=== PATIENT | male | born 1985 | race Caucasian/White ===

== ENCOUNTER 2024-09-22 22:45 | Inpatient (IN) | payer MEDICARE, SELFPAY ==
[2024-09-22] VITALS (17 sets, daily range): BP systolic 107–137; BP diastolic 58–96
[2024-09-22] MEDS: ATIVAN 2 MG IV ×2 (19:39→20:25)
[2024-09-22] MEDS: ZOFRAN 4 MG IV (19:42)
[2024-09-22] MEDS: NSS 1000 IV ×2 (19:42→20:25)
[2024-09-22 19:56] LABS: Urine Albumin 2+ (Neg - Trace); Urine Bilirubin Negative (Negative); Urine Character Clear (Clear); Urine Color Yellow; Urine Glucose Negative (Negative); Urine Ketone 2+ (Negative); Urine Leukocyte 1+ (Negative); Urine Nitrite Negative (Negative); Urine Occult Blood Negative (Negative); Urine Specific Gravity 1.015 (<1.030); Urine Urobilinogen Negative (Neg - 1+)
--- NOTE | 2024-09-22 19:56 | ED.GENMED ---
History of Present Illness
General
Chief Complaint: Withdrawal Symptoms
Time Seen by Provider: 09/22/24 19:36
History of Present Illness
History of Present Illness:
39-year-old male with history of opiate abuse presenting to the emergency department for concern of withdrawal versus overdose. Patient was reportedly found unresponsive by his partner. Last use of drugs was allegedly a week ago. Emesis called
him on medics arrival, did administer Narcan without significant response. Patient awake on their arrival, however shaky and not conversational. Patient unable to give any additional history.
Past History
Past History
ED Past Medical History: None
Social History
Tobacco: Smoker
Alcohol: Occasional
Drug: IVDA
Family History
Family History: Negative Diabetes
Phy Exam
Physical Exam
Physical Exam:
General: Covered in emesis, tremulous
HEENT: protecting airway
Neck: appears supple
CV: Tachycardic, regular rhythm, no evidence of cyanosis
Resp: No accessory muscle use, no increased work of breathing, lungs clear to auscultation bilaterally
Abd: Soft and non-distended, no tenderness to palpation
Extremities: No deformities, no swelling
Neuro: alert, no verbal communication, tremulous
: deferred
Rectal: deferred
Psych: Normal affect
Skin: Intact
Scores
COW Clinical Opiate Withdrawal Scale
Resting Pulse Rate: 101-120
Sweating-over past 30min not from room temp or activity: Flushed or observable moistness on face
Restlessness-observation during assessment: Frequent shifting or extraneous movements of legs/arms
Pupil Size: Pupils possibly larger than normal for room light
Bone or Joint Aches: Not present
Runny Nose or Tearing-not accounted for by cold/allergies: Not present
GI Upset-over last 30min: Multiple episodes of diarrhea or vomiting
Tremor-observation of outstretched hands: Gross tremor or muscle twitching
Yawning-observation during assessment: No yawning
Anxiety or Irritability: None
Gooseflesh Skin: Skin is smooth
Score: 17
Withdrawal Severity: Moderate Withdrawal, consider starting Suboxone
Course
Orders/Labs/Results
Orders:
Orders
09/22/24 Breakfast
NPO
Allow oral meds: Yes
Allow clear liquids: Sips of Clears
09/22/24 19:34
Lorazepam [Ativan] 2 mg .ROUTE .STK-MED ONE
09/22/24 19:36
0.9% Sodium Chloride 1000 ml [Nss] 1,000 ml IV BOLUS
Lorazepam [Ativan] 2 mg IV NOW STA
Ondansetron Injectable [Zofran] 4 mg IV NOW STA
09/22/24 19:37
Electrocardiogram (*1) Stat
Reason for Study: Other
Other Reason for Exam: overdose
CT Head W/o Iv Contrast Urgent
Comment:
Reason For Exam: AMS, withdrawl
EKG- Treatment ONCE
CR Chest Portable - 1 View Urgent
Comment:
Reason For Exam: withdrawl
Reason Study Needs to be Portable: Patient Unstable
09/22/24 19:40
Acetaminophen Urgent
Alcohol Urgent
Complete Blood Count/With Diff Urgent
Comprehensive Metabolic Panel Urgent
Magnesium Urgent
Manual Differential Urgent
Salicylate Urgent
09/22/24 19:45
Fentanyl, Urine Urgent
Urinalysis Reflex To Culture Urgent
Date Specimen was Collected: 09/22/24
Time Specimen was Collected: 19:43
Urine Drug Abuse Screen Urgent
Date Specimen was Collected: 09/22/24
Time Specimen was Collected: 19:43
Urine Microscopic Reflex Cult Urgent
Urine Culture Urgent
YULIYA Source: U
Specimen Description:
Date Specimen was Collected: 09/22/24
Time Specimen was Collected: 19:43
09/22/24 20:21
0.9% Sodium Chloride 1000 ml [Nss] 1,000 ml IV BOLUS
Lorazepam [Ativan] 2 mg IV NOW STA
09/22/24 20:22
0.9% Sodium Chloride 1000 ml [Nss] 1,000 ml IV BOLUS
09/22/24 22:00
Flush (0.9% Sodium Chloride) [Flush (Nss)] See Dose Instructions IV PER PROTOCOL
09/22/24 22:06
Admit/Transfer Patient As Directed
Co-Sign Provider:
Level of Care: Inpatient admission
Assign to:: ICU
Physician / Group: Phuc
Diagnosis: Overdose / Withdrawal
Reason for Hospitalization: Overdose / Withdrawal
Expected length of stay greater than two midnights?: Yes
ELOS- Estimated Length of Stay in days: 4
I certify the patient meets the requirements for IP care: Yes
PRN Pain Medication Management As Directed
May give lesser potent ordered pain med per pt: Yes
preference::
Protocol:: Medication orders for pain may be administered in a
manner that supports deferring to patient preference
when the pt is:
- Requesting an ordered lesser potent pain medication.
Least to most potent pain medications are defined
as: acetaminophen < NSAID < tramadol < opioids
(morphine, oxycodone, hydromorphone).
- Requesting a lesser dose of the same medication IF
ORDERED.
- Requesting a less intrusive route of administration
if both routes are prescribed by the provider (PO <
IV).
09/22/24 22:07
Code Status As Directed
Resuscitation Status: Full Code
09/22/24 22:14
Add On- LAB Urgent
Tests Added?: Magnesium
Potassium Chloride [KCl] 40 meq 0.9% Sodium Chloride 250 ml [Nss] 250 ml IV NOW
09/22/24 22:18
ABG [Arterial Blood Gas] Urgent
%Oxygen/Room Air: High Flow
09/22/24 22:48
Acetaminophen [Tylenol] 650 mg PO Q4HPRN PRN
Albuterol Nebs [Ventolin Nebules] 2.5 mg INH R Q4HPRN PRN
Buprenorphine [Subutex] 8 mg SL PRN PRN
Haloperidol Lactate [Haldol] 5 mg IV ONCE PRN PRN
Lorazepam [Ativan] 2 mg IV Q4HPRN PRN
Tizanidine [Zanaflex] 2 mg PO Q6HPRN PRN
Trimethobenzamide [Tigan] 200 mg IM Q6HPRN PRN
VANCOMYCIN Pharmacy to Dose [VANCOCIN Pharmacy to Dose] 1 each Pharmacy To Prepare [Call Pharmacy To Prepare] 0 ml IV PER PROTOCOL
09/22/24 22:48
Electrocardiogram (*1) Routine
Reason for Study: QTc Monitoring
Comment: if not already done in ED
Case Management Consult ONCE
Case Management Consult: Other
Comment: opioid withdrawal
Consult Notification Routine
Specialty to Notify: Corn Detasseler Machine Operator
Date consulting provider notified: 09/23/24
Time consulting provider notified: 07:16
Notified:: Provider
Corn Detasseler Machine Operator Consult Routine
Consulting Provider: Akbar Da Silva
Was physician already notified: No
Reason for consult: Altered Mental Status / Overdose
Activity As Directed
Activity Level: Bedrest
Clinical Opioid Withdrawal Scale (COWS) .PRN
Frequency:: now, Q4 hours x 24 hours, then PRN based on symptoms
EEG [Rapid Point of Care EEG (ED/ICU ONLY)] Q1H
Indications for use:: Altered Mental Status
EKG with chest pain [ECG as needed] As Directed
ECG as needed for:: Chest Pain
Castañeda Catheter [Catheter- Indwelling] As Directed
Reason for insertion: Acute Kidney Injury
Discontinue Date/Time: 09/25/24 0600
Intake/ Output As Directed
Frequency: Per unit guidelines
Comment: strict intake and output monitoring
Neurological Checks As Directed
Frequency: q4h
Pneumatic Compression Sleeves As Directed
Type: Knee high
Precautions As Directed
Type of Precautions: Seizure
Aspiration
Vital Signs As Directed
Frequency: Per unit guidelines
Weight As Directed
Frequency: Daily
Oxygen Therapy [O2 Therapy] [RESP] Routine
Titrate/Wean O2 to maintain O2 sat greater than (%): 94
DX Deep Vein Thrombosis Video Routine
09/22/24 23:00
KCl 40 Meq/0.9%Sodchl 1000 ml [NSS with KCL 40 MEQ] 40 meq in 1,000 ml IV 150 mls/hr
09/22/24 23:04
Blood Culture Q30M
YULIYA Source: Blood/Venous
Specimen Description:
09/22/24 23:05
B-Hydroxybutyrate Urgent
Lactic Acid Urgent
TSH Reflex To Free T4 Routine
09/22/24 23:07
Blood Culture Q30M
YULIYA Source: Blood/Venous
Specimen Description:
09/23/24 00:00
Piperacillin/Tazo 2.25 Gram [Zosyn] 2.25 grams in 50 ml IV Q8H
09/23/24 03:42
Complete Blood Count/No Diff IN AM
09/23/24 06:00
EKG [Electrocardiogram (*1)] IN AM
Reason for Study: Chest Pain
09/23/24 08:00
Buprenorphine [Subutex] 4 mg SL ONCE PRN PRN
Buprenorphine [Subutex] See Dose Instructions SL ONCE ONE
Pantoprazole [Protonix IV] 40 mg IV DAILY
09/23/24 12:14
Basic Metabolic Panel Q6H
09/23/24 17:56
Basic Metabolic Panel Q6H
09/24/24 02:27
Basic Metabolic Panel Q6H
09/24/24 08:00
Buprenorphine [Subutex] See Dose Instructions SL DAILY
Abnormal Lab Results
09/22/24 09/22/24 09/22/24
19:40 19:45 22:18
WBC 34.5 H 10^3/uL
(4.8-10.8)
RBC 6.66 H 10^6/uL
(4.70-6.10)
Hgb 18.2 H g/dL
(13.0-18.0)
MCV 77.6 L fL
(80.0-94.0)
MPV 11.4 H fL
(7.4-10.4)
Abs Neuts (Manual) 30.3 H 10^3/uL
(1.4-6.5)
Segmented Neutrophils 88 H %
(42-75)
Lymphocytes (Manual) 9 L %
(20-51)
pH 7.60 H
(7.35-7.45)
pCO2 30 L mmHg
(35-48)
pO2 124 H mmHg
(83-108)
HCO3 29.5 H mmol/L
(21-28)
ABG O2 Sat (Measured) 99.6 H %
(94-98)
Sodium 152 H mmol/L
(135-145)
Potassium 3.1 L mmol/L
(3.5-5.1)
Chloride 96 L mmol/L
(98-107)
Carbon Dioxide 33 H mmol/L
(22-30)
BUN 36 H mg/dl
(9-20)
Creatinine 4.9 H* mg/dL
(0.7-1.3)
Glucose 130 H mg/dl
(70-99)
Calcium 11.5 H mg/dl
(8.4-10.2)
Magnesium 2.6 H mg/dl
(1.6-2.3)
Total Bilirubin 1.9 H mg/dl
(0.2-1.3)
Total Protein 9.1 H g/dl
(6.3-8.2)
Albumin 5.5 H g/dl
(3.5-5.0)
Urine Ketones 2+ A
(Negative)
Leukocyte Esterase Rfl 1+ A
(Negative)
Urine Bacteria (Reflex) Moderate A
(Negative)
Urine Albumin (Reflex) 2+ A
(Neg - Trace)
Salicylates < 1.0 L mg/dl
(2.0-20.0)
Urine Fentanyl Screen Positive H
(Negative)
Acetaminophen < 10 L ug/ml
(10-30)
Urine Cocaine Screen Positive H
(Negative)
09/22/24 19:40
09/22/24 19:40
Vital Signs
Initial and Last Documented VS:
Initial Vital Signs
Pulse Resp
106 20
09/22/24 19:29 09/22/24 19:29
Last Documented Vital Signs
Temp Pulse Resp BP Pulse Ox
99.3 F 84 20 175/101 96
09/24/24 11:00 09/24/24 11:45 09/24/24 11:45 09/24/24 11:00 09/24/24 11:45
MDM/Problems Addressed
MDM/Problems Addressed:
39-year-old male with history of opiate abuse presenting to the emergency department for concern of withdrawal versus overdose. Vital signs on arrival significant for tachycardia and hypoxia.
On exam patient is awake and alert, however appears altered, unable to provide any information. Patient is covered in emesis. No significant response to Narcan, however no pinpoint pupils or respiratory depression with lower suspicion for
overdose. Ultimately suspect severe withdrawal. Patient placed on high flow nasal cannula for oxygen support. Plan for laboratory analysis and supportive therapy with IV fluids and benzodiazepines. Will also obtain CT brain imaging given unclear
history.
20:00 - EKG shows prolonged QTc. Will hold any additional antiemetics.
20:30 - Patient's labs show significant elevation of creatinine with concern for acute kidney injury from dehydration. Continuing IV fluids. Will give additional dose of benzos. Plan for admission for withdrawal from opiates, however. Patient is
positive for both fentanyl and cocaine so possible concomitant overdose.
*Pulse Oximetry
SaO2: 100
Oxygen Mode of Delivery: Room air
*EKG
Interpreted by ED Provider?: Yes
EKG Intrepretation Date: 09/22/24
EKG Intrepretation Time: 20:00
Interpretation: normal
Heart Rate: 96
Rate: normal
Rhythm: sinus
[place]: normal axis
Interval: long QT
QRS Pattern: normal QRS
Ischemia: no ischemia
*Critical Care Note
Total Time (30-74mins, 75-104mins- exclusive of procedures): 41
comment:
The high probability of a clinically significant, sudden or life threatening deterioration of the respiratory system(s) required my full and direct attention, intervention and personal management. The aggregate critical care time was 41 minutes.
This time is in addition to time spent performing reported procedures but includes the following:
[x] Data Review and interpretation
[x] Patient assessment and monitoring of vital signs
[x] Documentation
[x] Medication orders and management
ED Attending Note
-
Portions of this chart may have been created with voice recognition software.� Occasional wrong word or��sound alike� substitutions may have occurred due to the inherent limitations of voice recognition software.
Discharge Plan
Departure
Patient Disposition: Admit
Date of Disposition: 09/22/24
Time of Disposition: 20:39
Presentation/result/management discussed w/ accepting MD/DO: Hospitalist
Patient with high blood pressure during this ER visit?: No
Condition: Critical
Discharge Problem:
Acute renal failure, Overdose by ingestion
Interventions
Interventions:
*General Assessment Last Done: 09/22/24 19:50
*Neglect/Abuse Screening Last Done: 09/22/24 19:32
*ED- Fall Risk Assessment Last Done: 09/22/24 19:32
*ED COVID-19 Vaccine History Last Done: 09/22/24 19:32
*Nursing Disposition Last Done: 09/22/24 22:51
ED- Neurological Assessment Last Done: 09/22/24 19:37
ED-Psychological Assessment Last Done: 09/22/24 19:37
Discharge Date and Time
Discharge Date/Time: 09/22/24 22:52
[2024-09-22 20:02] LABS: Urine Squamous Cell 0-2 /LPF (Few)
[2024-09-22 20:05] LABS: Urine Red Blood Cell 0-2 /HPF (0-2)
[2024-09-22 20:07] LABS: Urine Sperm Seen
[2024-09-22 20:08] LABS: Amphetamines Negative (Negative); Barbiturates Negative (Negative); Benzodiazepines Negative (Negative); Buprenorphine Negative (Negative); Cocaine Positive (Negative); Marijuana Negative (Negative); Methadone Negative (Negative); Methamphetamines Negative (Negative); Opiates Negative (Negative); Phencyclidine Negative (Negative); Tricyclic Antidepressants Negative (Negative); Urine Bacteria Moderate (Negative); Urine Trichomonas Moderate
[2024-09-22 20:11] LABS: Alcohol None Detected
[2024-09-22 20:20] LABS: ALT (SGPT) 31 U/L (0-50); AST (SGOT) 54 U/L (17-59); Acetaminophen < 10 ug/ml (10-30); Albumin 5.5 g/dl (3.5-5.0); Alkaline Phosphatase 77 U/L (38-126); Blood Urea Nitrogen 36 mg/dl (9-20); Calcium 11.5 mg/dl (8.4-10.2); Carbon Dioxide 33 mmol/L (22-30); Chloride 96 mmol/L (98-107); Glucose 130 mg/dl (70-99); Potassium 3.1 mmol/L (3.5-5.1); Salicylate < 1.0 mg/dl (2.0-20.0); Sodium 152 mmol/L (135-145); Total Bilirubin 1.9 mg/dl (0.2-1.3); Total Protein 9.1 g/dl (6.3-8.2); eGFR 14.67
[2024-09-22 20:21] LABS: Hematocrit 51.7 % (39.0-52.0); Hemoglobin 18.2 g/dL (13.0-18.0); Mean Corp Hgb Conc. 35.2 g/dL (33.0-37.0); Mean Corpuscular Hgb 27.3 pg (27.0-31.0); Mean Corpuscular Volume 77.6 fL (80.0-94.0); Mean Platelet Volume 11.4 fL (7.4-10.4); Platelet Count 354 10^3/uL (130-400); Red Blood Cell Count 6.66 10^6/uL (4.70-6.10); Red Cell Dist. Width 14.3 % (11.5-14.5); White Blood Cell Count 34.5 10^3/uL (4.8-10.8)
[2024-09-22 20:23] LABS: Absolute Neutrophils -Man Diff 30.3 10^3/uL (1.4-6.5); Band Neutrophils 0 % (0-3); Lymphocytes 9 % (20-51); Monocytes 3 % (2-9); Platelets Checked Yes; Segmented Neutrophils 88 % (42-75)
[2024-09-22 20:24] LABS: Anisocytosis Slight; Macrocytosis Slight; Normal RBC Morphology No
[2024-09-22 20:25] LABS: Fentanyl, Urine Positive (Negative)
[2024-09-22 20:26] LABS: Ovalocytes Slight; Total Cells Counted 100
--- NOTE | 2024-09-22 20:26 | PHANOTE ---
med rec note- patient minimal responding to question, only has two prescription drug bottles with him which are coverage in dark matter. andie ([phone]) pharmacy closed at this time, unable to get directions for medication, no ecw.
--- NOTE | 2024-09-22 22:19 | HPS.HSE ---
Family Physician
-
Family Physician: INTERVIEWE UNKNOWN - PT NOT
Chief Complaint
-
Altered Mental Status
History of Present Illness
Patient is a 39y M with unknown PMH who presents to ED via EMS for evaluation of unresponsiveness. History obtained from ED record. Patient is minimally responsive / unable to contribute to this history. Unable to reach partner via phone -
goes direct to voicemail.
Patient reportedly found unresponsive at home by his partner who called EMS. EMS arrived to find patient awake but tremulous and poorly responsive / not following commands.
Patient covered in emesis. Given Narcan at the scene with no improvement. Brought to the ED for further evaluation and treatment.
Patient placed on high flow O2 in the ED for initial hypoxemia (85% room air).
At the time of my examination, he will turn his had toward loud noise / tactile stimuli. Does not answer questions or follow commands.
Medical History
Past Medical History
Past Medical History: Reports Other
Additional Past Medical History:
Unknown
Past Surgical History: Reports Other
Additional Past Surgical History:
Unknown
Social History
Unable to obtain full social history at this time due to: Patient Non-verbal
Family History
Family History: Unable to Obtain
Allergies / Home Medications
Allergies reflects when Allergies were last updated in [facility].
Home Medications with original date entered in [facility]
Allergy/Medication List:
Allergies
Allergy/AdvReac Type Severity Reaction Status Date / Time
No Known Allergies Allergy Verified 02/04/17 18:27
Home Medications
buprenorphine 8 mg-naloxone 2 mg sublingual tablet tab sublingual 09/22/24
clonazepam 0.5 mg tablet mg PO 09/22/24
clonidine HCl 0.1 mg tablet 0.1 - 0.2 mg PO Q4HPRN PRN withdrawal symptoms 09/22/24
hydroxyzine HCl 50 mg tablet 50 mg PO Q6HPRN PRN withdrawal symptoms 09/22/24
ondansetron HCl 4 mg tablet 4 mg PO Q6HPRN PRN nausea 09/22/24
trazodone 50 mg tablet mg PO 09/22/24
If medication reconciliation has not been performed, why?: Medication List N/A
Review of Systems
-
Unable to obtain full review of systems at this time due to: Patient Non-verbal
Physical Exam
Vital Signs
Vital Signs
Temp Pulse Resp BP Pulse Ox
97.9 F 107 32 108/61 98
09/22/24 19:33 09/22/24 22:00 09/22/24 22:00 09/22/24 22:00 09/22/24 22:00
Physical Exam
General: Other (Ill-appearing 39y M. Eyes open with saccadic movements / poor focus. Turns toward loud noise / tactile stimuli. No speech.)
HEENT: Other (Dry MM. Neck supple.)
Respiratory: Other (Decreased at bases - otherwise clear.)
Cardiac: S1/S2 and Tachycardia; No Murmur
GI: Soft, Non Tender, Non Distended and Normal Bowel Sounds
Musculoskeletal: No Clubbing, No Cyanosis and No Edema
Skin: Other (Areas of sunburn / exposure noted on arms / face.)
Neuro: Other (Somnolent / poorly responsive. Poor focus. Saccadic eye movements.)
Laboratory Results
-
09/22/24 19:40
09/22/24 19:40
Laboratory Results
Total Bilirubin 1.9 mg/dl (0.2-1.3) H 09/22/24 19:40
AST 54 U/L (17-59) 09/22/24 19:40
ALT 31 U/L (0-50) 09/22/24 19:40
Alkaline Phosphatase 77 U/L (38-126) 09/22/24 19:40
Impression/Plan
-
A/P: Patient is a 39y M with no known PMH who presents to ED for evaluation of unresponsiveness. Very limited history available. One prior visit here (2017) for heroin overdose.
Acute TME
Substance Abuse
Overdose +/- Withdrawal
- Admit to ICU for further evaluation and treatment.
- Patient with evident N/V (covered in emesis) and unresponsive / non-verbal.
- CT head in the ED unremarkable.
- Multiple metabolic derangements noted on labs suggestive of significant volume depletion, emesis, etc.
- UDS positive for fentanyl and cocaine - unclear when last use was. No significant response to Narcan given today.
- Point of care EEG monitoring given altered mental state, saccadic eye movements, etc.
- Monitor for evidence of withdrawal symptoms and treat via opioid withdrawal protocol accordingly.
- IV Ativan for any agitation / evident seizure activity / etc.
- Tigan for nausea given QT prolongation on initial EKG - follow for changes.
- Blood cultures given prior confirmed IVDA (and suspected recent use).
- Empiric abx pending culture data. Follow WBC, fever curve, etc.
Acute Hypoxemic Respiratory Failure
- Initial SpO2 in the ED was 85% on room air.
- Has been maintained on high-flow O2 since that time.
- Would attempt to wean O2 as able.
- Check ABG now given hypoxemia and acidosis.
- CXR unremarkable - but highly suspicious for aspiration event given emesis, hypoxemia, etc.
- Cover with empiric abx for now and follow temperature curve / monitor for any new symptoms.
Anion Gap Metabolic Acidosis
Hypokalemia
Hypercalcemia
MISAEL
- Anion gap = 23 on initial labs. Check lactate, B-OH, etc.
- Suspect in large part due to volume losses / emesis.
- Aggressive IVF support and follow for improvement.
- Hypokalemia likely underestimated given concurrent acidosis. KCl replacement ordered.
- Check Mg level.
- Follow labs / lyte and adjust IVFs as needed.
- Follow for improvement in SCr - no prior labs for comparison, but suspect significant MISAEL.
Leukocytosis
- WBC = 34.5. ? stress response.
- Covering with empiric abx for now given IVDA, possible aspiration, etc.
- Follow WBC, fever curve, etc.
- Follow-up culture data.
DVT Prophylaxis: SCDs
Code Status: Full
[2024-09-22 22:46] LABS: B.E. 8.4 mmol/L; HCO3 29.5 mmol/L (21-28); O2 Saturation % 99.6 % (94-98); PCO2 30 mmHg (35-48); PO2 124 mmHg (83-108)
[2024-09-22 22:48] LABS: O2 Therapy HIGH FLOW
[2024-09-22 22:53] LABS: Magnesium 2.6 mg/dl (1.6-2.3)
[2024-09-22] MEDS: NSS with KCL 40 MEQ 1000 IV (23:12)
[2024-09-22 23:28] LABS: Lactic Acid 1.7 mmol/L (0.7-2.0)
[2024-09-22 23:44] LABS: B-Hydroxybutyrate 2.72 mmol/L (0.02-0.27)
[2024-09-22] MEDS: ZOSYN 50 IV (23:52)
[2024-09-22] MEDS: SUBUTEX 8 MG SL (23:53)
[2024-09-23] VITALS (32 sets, daily range): BP systolic 92–139; BP diastolic 56–94
[2024-09-23] MEDS: VANCOCIN 540 MG IV (00:04)
[2024-09-23] MEDS: KCL 270 MEQ IV ×3 (00:13→21:26)
--- NOTE | 2024-09-23 01:13 | PTCARENOTE ---
Received patient minimally responsive, occasionally nodding head and weakly squeezing hands. Responsive to tactile stimulation. PERRLA 5 mm, sluggish. Rapid POC EEG applied, 0% seizure burden. NS/ST 90s-100s, EKG showed prolonged QTC. BP 120s/40s,
normothermic. Palpable radial and pedal pulses b/l. On HFNC, 50L/50%, saturating 97%. Lung sounds coarse with rhonchi throughout, nonproductive occasional cough. Suctioned for thick white/clear sputum. Tachypneic to the 30s. Abdomen soft, round,
hypoactive bowel sounds throughout. 16 icelandic temp sensing damian inserted for MISAEL. Bruising throughout extremities, skin red/flushed. 2 ultrasound guided IVs patent, WNL. CHG bath done, repositioned, labs and blood cultures sent. EKG done, SCDs
applied. Vanc and zosyn given, IVF and K repletion ongoing. Bed alarm on, hourly rounding and patient safety checks ongoing.
[2024-09-23 01:35] LABS: Glucose - Point of Care 76 mg/dl (70-99)
[2024-09-23 03:57] LABS: Hematocrit 39.9 % (39.0-52.0); Hemoglobin 14.4 g/dL (13.0-18.0); Mean Corp Hgb Conc. 36.1 g/dL (33.0-37.0); Mean Corpuscular Hgb 28.5 pg (27.0-31.0); Mean Corpuscular Volume 78.9 fL (80.0-94.0); Mean Platelet Volume 11.8 fL (7.4-10.4); Platelet Count 259 10^3/uL (130-400); Red Blood Cell Count 5.06 10^6/uL (4.70-6.10); Red Cell Dist. Width 14.1 % (11.5-14.5); White Blood Cell Count 28.6 10^3/uL (4.8-10.8)
[2024-09-23 04:01] LABS: INR 1.08; PT 14.5 Sec (11.4-14.6)
[2024-09-23] MEDS: ATIVAN 2 MG IV (04:31)
--- NOTE | 2024-09-23 04:40 | PTCARENOTE ---
Patient has intermittent episodes of full body shaking, REHABILITATION NURSE to bedside, seizure threshold varies from 7-70%. Patient responsive, nodding and following commands. COWS 18, holding second dose of subutex per REHABILITATION NURSE, prn Ativan given. Labs sent.
--- NOTE | 2024-09-23 04:56 | W.PN.UPDATE ---
Update Note
Progress Note Update
Ceribell EEG placed overnight for seizure activity monitoring. There were episodes lasting a minute on the monitor between 45 and 70% seizure burden. However, every time when patient assessed he was able to interact. 2mg of Ativan was given 0435.�
Patient noted to have visible periodic shaken from withdrawal.
[2024-09-23] MEDS: NSS with KCL 40 MEQ 1000 IV (05:40)
[2024-09-23 06:06] LABS: ALT (SGPT) 17 U/L (0-50); AST (SGOT) 39 U/L (17-59); Albumin 3.7 g/dl (3.5-5.0); Alkaline Phosphatase 58 U/L (38-126); Blood Urea Nitrogen 44 mg/dl (9-20); Calcium 8.9 mg/dl (8.4-10.2); Carbon Dioxide 27 mmol/L (22-30); Chloride 113 mmol/L (98-107); Direct Bilirubin 0.6 mg/dl (0.0-0.4); Glucose 121 mg/dl (70-99); Magnesium 2.3 mg/dl (1.6-2.3); Potassium 3.4 mmol/L (3.5-5.1); Sodium 150 mmol/L (135-145); Total Bilirubin 1.4 mg/dl (0.2-1.3); Total Protein 6.1 g/dl (6.3-8.2); eGFR 15.04
--- NOTE | 2024-09-23 07:17 | CON.NEURO ---
Consultation
Order
Date of Consultation: 09/23/24
Requesting Provider:Alejandro Hudson CRNP
Reason for Consult: Rule out seizure
Neurology Consultation Note.
HPI: This is a 39-year-old man who presented to [facility] on 09/22/2024 with encephalopathy.
According to EMR the patient was found by partner unresponsive.
ER VS: 116/96, 106, 20, afebrile, 100% on RA
EKG:NSR, QTc Int : 616 ms
PDMP: No recently prescribed medications
Labs: Glucose�130, sodium�152, potassium�3.1, creatinine�4.9, total bili�1.9, calcium�11.5, albumin�5.5, normal TSH WBCs�34.5, hemoglobin�18.2, absolute neutrophil count�30.3, UA�positive for bacteria, leukocyte esterase, ketones, UA tox�positive
for cocaine, fentanyl
CT head wo contrast-minimal acute and nonacute sinusitis
CXR-unremarkable.
MAR: Buprenorphine 8 mg given on 09/22/24 at 23:53, lorazepam 2 mg given at 19:39 and 20: 25 on 09/22/2024, 4'31 on 09/23/2024.
PMH: Substance use disorder,
PSH: Unknown
SH: Active smoker, history of heroin use
FH: Unknown
All:NKDA
ROS: Unable due to
General: Well developed. In no acute distress.
Cardio: Regular rate and rhythm without murmur. Extremities are without cyanosis or edema.
Neuro:
Mental Status: Stuporous. Awakens to sternal rub, attends briefly, follows requests readily.
Cranial Nerves: Orthophoric primary gaze. Pupils 4 mm, equally round and reactive to light.
Motor: Moves all limbs within bed plane
Reflexes: 3+ throughout the upper extremities and knees. 4/2 in AJs. Plantar responses flexor bilaterally.
Sensory: Grimaces to noxious stim
Coordination: Intermittent generalized tremor
Gait: deferred
Assessment and Plan:
I. Acute encephalopathy (toxic, metabolic, epileptic)
II. Pathological hyperreflexia. Increased QTc.
III. Substance use disorder
- Continue telemetry monitoring
- Seizure precautions
- Avoid hypoxia and medications known to lower seizure threshold
- Addictive psychiatry consult
- Please check CK.
- Contacted patient's significant other. No answer
- DVT prophylaxis.
I personally reviewed all radiology and labs along with past medical records pertinent to current medical problems. Total time spent in patient care is 60 minutes.
Thank you for allowing us to participate in the care of this patient. We will continue to follow. Please do not hesitate to contact us with any questions or concerns.
Subjective/Objective
Subjective Data
Date of Service: September 23, 2024
Objective Data
Vital Signs
Temp Pulse Resp BP Pulse Ox
37.3 C 94 25 126/73 94
09/23/24 07:07 09/23/24 06:15 09/23/24 06:15 09/23/24 06:00 09/23/24 06:15
Lab Results
09/23/24 03:42
PT 14.5 Sec (11.4-14.6) 09/23/24 03:42
INR 1.08 09/23/24 03:42
APTT 29.0 Sec (23.4-35.0) 09/23/24 03:42
Sodium 150 mmol/L (135-145) H 09/23/24 05:30
Potassium 3.4 mmol/L (3.5-5.1) L 09/23/24 05:30
BUN 44 mg/dl (9-20) H 09/23/24 05:30
Glucose 121 mg/dl (70-99) H 09/23/24 05:30
Calcium 8.9 mg/dl (8.4-10.2) D 09/23/24 05:30
Ur Buprenorphine Negative (Negative) 09/22/24 19:45
Patient Allergies
No Known Allergies Allergy (Verified 02/04/17 18:27)
Medications
-
Active Medications
Generic Name Dose Route Start Last Admin
Trade Name Freq PRN Reason Stop Dose Admin
Acetaminophen 650 mg 09/22/24 22:48
Acetaminophen 325 Mg Tablet PO 10/20/24 22:47
Q4HPRN PRN
Mild Pain / Temp > 101
Albuterol Sulfate 2.5 mg 09/22/24 22:48
Albuterol Nebs 2.5 Mg/3 Ml Ampul INH
R Q4HPRN PRN
SOB
Protocol
Buprenorphine 8 mg 09/22/24 22:48 09/22/24 23:53
Buprenorphine 8 Mg Sl Tablet SL 8 mg
PRN PRN Administration
COWS greater than/equal to 8
Protocol
Buprenorphine 4 mg 09/23/24 08:00
Buprenorphine 2 Mg Sl Tablet SL 09/24/24 08:00
ONCE PRN PRN
opioid cravings/withdrawal sx
Buprenorphine 0 mg 09/24/24 08:00
Buprenorphine 8 Mg Sl Tablet SL 10/08/24 07:59
DAILY JOVANY
Buprenorphine 0 mg 09/23/24 08:00
Buprenorphine 8 Mg Sl Tablet SL 09/23/24 08:01
ONCE ONE
Piperacillin Sod/Tazobactam Sod 2.25 grams in 50 mls @ 100 mls/hr 09/23/24 00:00 09/22/24 23:52
Zosyn IV 50 mls
Q8H JOVANY Administration
Vancomycin HCl 1 each/ Device 0 mls @ 0 mls/hr 09/22/24 22:48
IV
PER PROTOCOL JOVANY
As Directed
Potassium Chloride/Sodium Chloride 20 meq in 1,000 mls @ 150 mls/hr 09/23/24 06:45
0.45% Nacl With Kcl 20 Meq IV
.Q6H40M JOVANY
Lorazepam 2 mg 09/22/24 22:48 09/23/24 04:31
Lorazepam 2 Mg/Ml Vial IV 10/20/24 22:47 2 mg
Q4HPRN PRN Administration
Agitation/Withdrawal/Seizure
Pantoprazole Sodium 40 mg 09/23/24 08:00
Pantoprazole Sodium 40 Mg/10 Ml Vial IV 10/21/24 07:59
DAILY JOVANY
Sodium Chloride 0 flush 09/22/24 22:00
Sodium Chloride 0.9% (Flush) Syringe IV 10/20/24 21:59
PER PROTOCOL JOVANY
Sodium Chloride 10 ml 09/23/24 08:00
Sodium Chloride 0.9% (Preservative Free) 10 Ml Vial IV 10/21/24 07:59
DAILY JOVANY
Sodium Chloride 1 ml 09/22/24 22:58
Nss (Pf) 10 Ml Vial For Ativan 2 Mg Dose IV 10/20/24 22:57
Q4HPRN PRN
IV LORAZEPAM DILUTION
Tizanidine HCl 2 mg 09/22/24 22:48
Tizanidine 2 Mg Tablet PO 10/20/24 22:47
Q6HPRN PRN
restlessness,agitation,anxiety
Trimethobenzamide HCl 200 mg 09/22/24 22:48
Trimethobenzamide 200 Mg/2 Ml Vial IM 10/20/24 22:47
Q6HPRN PRN
nausea
Home Medications
�Medication �Instructions �Recorded
buprenorphine 8 mg-naloxone 2 mg tab sublingual 09/22/24
sublingual tablet
clonazepam 0.5 mg tablet mg PO 09/22/24
clonidine HCl 0.1 mg tablet 0.1 - 0.2 mg PO Q4HPRN PRN 09/22/24
withdrawal symptoms
hydroxyzine HCl 50 mg tablet 50 mg PO Q6HPRN PRN withdrawal 09/22/24
symptoms
ondansetron HCl 4 mg tablet 4 mg PO Q6HPRN PRN nausea 09/22/24
trazodone 50 mg tablet mg PO 09/22/24
Vital Signs and Labs
-
Vital Signs and Labs:
Vital Signs
Temp Pulse Resp BP Pulse Ox
37.3 C 94 25 126/73 94
09/23/24 07:07 09/23/24 06:15 09/23/24 06:15 09/23/24 06:00 09/23/24 06:15
Lab Results
09/23/24 03:42
PT 14.5 Sec (11.4-14.6) 09/23/24 03:42
INR 1.08 09/23/24 03:42
APTT 29.0 Sec (23.4-35.0) 09/23/24 03:42
Sodium 150 mmol/L (135-145) H 09/23/24 05:30
Potassium 3.4 mmol/L (3.5-5.1) L 09/23/24 05:30
BUN 44 mg/dl (9-20) H 09/23/24 05:30
Glucose 121 mg/dl (70-99) H 09/23/24 05:30
Calcium 8.9 mg/dl (8.4-10.2) D 09/23/24 05:30
Ur Buprenorphine Negative (Negative) 09/22/24 19:45
Medications
-
Medications:
Generic Name Dose Route Start Last Admin
Trade Name Freq PRN Reason Stop Dose Admin
Acetaminophen 650 mg 09/22/24 22:48
Acetaminophen 325 Mg Tablet PO 10/20/24 22:47
Q4HPRN PRN
Mild Pain / Temp > 101
Albuterol Sulfate 2.5 mg 09/22/24 22:48
Albuterol Nebs 2.5 Mg/3 Ml Ampul INH
R Q4HPRN PRN
SOB
Protocol
Buprenorphine 8 mg 09/22/24 22:48 09/22/24 23:53
Buprenorphine 8 Mg Sl Tablet SL 8 mg
PRN PRN Administration
COWS greater than/equal to 8
Protocol
Buprenorphine 4 mg 09/23/24 08:00
Buprenorphine 2 Mg Sl Tablet SL 09/24/24 08:00
ONCE PRN PRN
opioid cravings/withdrawal sx
Buprenorphine 0 mg 09/24/24 08:00
Buprenorphine 8 Mg Sl Tablet SL 10/08/24 07:59
DAILY JOVANY
Buprenorphine 0 mg 09/23/24 08:00
Buprenorphine 8 Mg Sl Tablet SL 09/23/24 08:01
ONCE ONE
Piperacillin Sod/Tazobactam Sod 2.25 grams in 50 mls @ 100 mls/hr 09/23/24 00:00 09/22/24 23:52
Zosyn IV 50 mls
Q8H JOVANY Administration
Vancomycin HCl 1 each/ Device 0 mls @ 0 mls/hr 09/22/24 22:48
IV
PER PROTOCOL JOVANY
As Directed
Potassium Chloride/Sodium Chloride 20 meq in 1,000 mls @ 150 mls/hr 09/23/24 06:45
0.45% Nacl With Kcl 20 Meq IV
.Q6H40M JOVANY
Lorazepam 2 mg 09/22/24 22:48 09/23/24 04:31
Lorazepam 2 Mg/Ml Vial IV 10/20/24 22:47 2 mg
Q4HPRN PRN Administration
Agitation/Withdrawal/Seizure
Pantoprazole Sodium 40 mg 09/23/24 08:00
Pantoprazole Sodium 40 Mg/10 Ml Vial IV 10/21/24 07:59
DAILY JOVANY
Sodium Chloride 0 flush 09/22/24 22:00
Sodium Chloride 0.9% (Flush) Syringe IV 10/20/24 21:59
PER PROTOCOL JOVANY
Sodium Chloride 10 ml 09/23/24 08:00
Sodium Chloride 0.9% (Preservative Free) 10 Ml Vial IV 10/21/24 07:59
DAILY JOVANY
Sodium Chloride 1 ml 09/22/24 22:58
Nss (Pf) 10 Ml Vial For Ativan 2 Mg Dose IV 10/20/24 22:57
Q4HPRN PRN
IV LORAZEPAM DILUTION
Tizanidine HCl 2 mg 09/22/24 22:48
Tizanidine 2 Mg Tablet PO 10/20/24 22:47
Q6HPRN PRN
restlessness,agitation,anxiety
Trimethobenzamide HCl 200 mg 09/22/24 22:48
Trimethobenzamide 200 Mg/2 Ml Vial IM 10/20/24 22:47
Q6HPRN PRN
nausea
Home Medications
-
Home Medications
buprenorphine 8 mg-naloxone 2 mg sublingual tablet tab sublingual 09/22/24
clonazepam 0.5 mg tablet mg PO 09/22/24
clonidine HCl 0.1 mg tablet 0.1 - 0.2 mg PO Q4HPRN PRN withdrawal symptoms 09/22/24
hydroxyzine HCl 50 mg tablet 50 mg PO Q6HPRN PRN withdrawal symptoms 09/22/24
ondansetron HCl 4 mg tablet 4 mg PO Q6HPRN PRN nausea 09/22/24
trazodone 50 mg tablet mg PO 09/22/24
--- NOTE | 2024-09-23 08:00 | PTCARENOTE ---
recd 0715 handoff in room with offgoing RN. VS noted. with direct, slow, intentional stimuli, did answer some questions (occas grunting) and able to show thumbs up. assisted with turning in bed. measured with pharmacist for med calcs using paper
measuring tape. tremors, rest of assessment as documented.
[2024-09-23] MEDS: PROTONIX IV 40 MG IV (08:08)
[2024-09-23] MEDS: ZOSYN 50 IV ×3 (08:08→20:29)
[2024-09-23] MEDS: NSS (PRESERVATIVE FREE) 10 ML IV (08:08)
--- NOTE | 2024-09-23 08:09 | W.CON.NEPH ---
Consultation
-
Date/Time Consultation Requested: 09/23/2024 7:30 AM
Date/Time Consultation Performed: 09/23/2024 7:30 AM
Requesting Provider: Dr. Altamirano
Performing Provider: Dr. Martinez
Reason for Consultation: Acute kidney injury
Medical History
-
Chief Complaint: Acute kidney injury
History of Present Illness:
The patient is a 39-year-old male with unknown PMH who presented to ED via EMS for evaluation of unresponsiveness. Patient was minimally responsive / unable to contribute to this history on presentation to ER.
Patient reportedly found unresponsive at home by his partner who called EMS. EMS arrived to find patient awake but tremulous and poorly responsive / not following commands.
Patient covered in emesis. Given Narcan at the scene with no improvement. Brought to the ED for further evaluation and treatment.
Patient placed on high flow O2 in the ED for initial hypoxemia (85% room air). On presentation to the hospital he was in acute renal failure with a creatinine of 4.9 and was notably hypernatremic. Patient also had a nonanion gap of 23. Nephrology
was consulted for acute kidney injury. Urine drug screen was notable for positive fentanyl and cocaine. Beta hydroxybutyrate was 2.72
Past Medical History
Drug abuse
Family History
Family History: Not Pertinent
Allergies / Home Medications
Allergy/AdvReac Type Severity Reaction Status Date / Time
No Known Allergies Allergy Verified 02/04/17 18:27
�Medication �Instructions �Recorded �Confirmed �Type
buprenorphine 8 mg-naloxone 2 mg tab sublingual 09/22/24 History
sublingual tablet
clonazepam 0.5 mg tablet mg PO 09/22/24 History
clonidine HCl 0.1 mg tablet 0.1 - 0.2 mg PO Q4HPRN PRN 09/22/24 09/22/24 History
withdrawal symptoms
hydroxyzine HCl 50 mg tablet 50 mg PO Q6HPRN PRN withdrawal 09/22/24 09/22/24 History
symptoms
ondansetron HCl 4 mg tablet 4 mg PO Q6HPRN PRN nausea 09/22/24 09/22/24 History
trazodone 50 mg tablet mg PO 09/22/24 History
Review of Systems
-
Unable to obtain full review of systems at this time due to: Acuity
History Source: Patient
All other systems: Negative unless noted
Physical Exam
Vital Signs
Vital Signs
Temp Pulse Resp BP Pulse Ox
99.1 F 101 29 116/79 96
09/23/24 07:07 09/23/24 07:30 09/23/24 07:30 09/23/24 07:30 09/23/24 07:56
Lab Results
09/23/24 03:42
WBC 28.6 10^3/uL (4.8-10.8) H 09/23/24 03:42
RBC 5.06 10^6/uL (4.70-6.10) 09/23/24 03:42
Hgb 14.4 g/dL (13.0-18.0) D 09/23/24 03:42
Hct 39.9 % (39.0-52.0) 09/23/24 03:42
Plt Count 259 10^3/uL (130-400) D 09/23/24 03:42
eGFR 15.04 09/23/24 05:30
Albumin 3.7 g/dl (3.5-5.0) D 09/23/24 05:30
Physical Exam
General: Profoundly lethargic, minimally responsive to questioning
HEENT: PERRL, EOMI, Anicteric, Conjunctivae Clear, Ear/Nose Intact, Hearing Normal, Oropharynx Clear/dry dentition Intact, Facial Symmetry, Neck Supple, Neck: Trachea Midline, No JVD and No Thyromegaly, no Bruits
Respiratory: Clear to auscultation bilaterally with normal lung exersion
Cardiac: S1/S2 and Regular tachycardia rate/Rhythm
Breast: Deferred by me
Abdomen: Soft, Nontender, Nondistended, Normal Bowel Sounds and No Hepatosplenomegaly
Rectal: Deferred by Provider
Genito-urinary: No Costovertebral Tenderness, damian
Extremities: No Clubbing, No Cyanosis and No Edema
Skin: Sunburn across face and arms
Neuro: Nonfocal/Grossly Intact, CN II-XII difficult to assess due to patient lethargy and Strength (Musculoskeletal exam 5 out of 5 both upper and lower extremities)
Hematologic/Lymphatic: No Cervical Lymphadenopathy, No Submandibular Lymphadenopathy and No Supraclavicular Lymphadenopathy
Psych: Depressed lethargic, minimally respond opriate
Vascular: plus 2 pedal and radial pulses
Data Reviewed
-
Radiology: Image Personally Visualized and interpreted (Chest x-ray personally reviewed no evidence of infiltrate pneumothorax or heart failure)
CT Scan: Report Reviewed by me (CT of head normal)
Labs: Labs Reviewed by me (BMP CBC urinalysis urine tox)
Assessment/Plan
-
Impression:
Decreased responsiveness
Acute kidney injury
Hypernatremia
Hypokalemia
Gap metabolic acidosis (223)
Plan:
MISAEL:
- Suspect prerenal he mediated due to hypernatremia and volume depletion, contraction metabolic alkalosis noted on ABG (7.6/30/124/30) Of unknown unresponsiveness
- Maintain MAP at 65 or greater to augment renal perfusion pressure
- Urinalysis notable for 2+ albumin 2+ ketones 1+ leukocyte esterase moderate bacteria no blood
- Will obtain ultrasound of kidney and bladder in am
- Quantitate underlying proteinuria with urine protein to creatinine ratio
- Administer hypotonic IV fluid for free water deficit (4.2 liters) (1/2 ns with 20meq kcl per liter at 150cc/hr)
- Accurate I's and O's maintain Damian catheter
- No acute hemodialysis indication
[2024-09-23] MEDS: SUBUTEX 8 MG SL (08:29)
[2024-09-23] MEDS: KEPPRA 500 MG IV ×2 (08:36→20:29)
[2024-09-23] MEDS: 0.45% NACL with KCL 20 MEQ 1000 IV ×2 (08:36→17:04)
[2024-09-23] MEDS: THIAMINE INJECTION 100 MG IV (08:37)
--- NOTE | 2024-09-23 09:14 | PHA.VAN.IN ---
Assessment
- Assessment
Renal Function: Unknown baseline (current SCr 4.6)
Concomitant Antimicrobials: Zosyn
Plan
- Plan
Initial / Loading Dose: 2000 mg
Maintenance Regimen: Dosing by levels
Monitoring: Random level 09/24/24 with AM labs
Pharmacokinetics Vancomycin I
- -
Patient Age: 39
Patient Sex: Male
Vancomycin Day #: 1
Indication: Bacteremia
Requesting Provider: Dr. Friend
Pertinent Antimicrobial Allergies:
NKDA
Height / Weight:
Height 5 ft 11 in
Actual Weight 81.9 kg
Pertinent Past Medical History: IVDU
- Vital Signs / Lab Results
Temp Pulse Resp BP Pulse Ox
99.1 F 101 29 116/79 96
09/23/24 07:07 09/23/24 07:30 09/23/24 07:30 09/23/24 07:30 09/23/24 07:56
Lab Results - Hematology
09/22/24 09/23/24
19:40 03:42
WBC 34.5 H 28.6 H
Band Neutrophils 0
Lab Results - Chemistry
09/22/24 09/23/24 09/23/24
19:40 03:42 04:36
BUN 36 H Cancelled Cancelled
Creatinine 4.9 H* Cancelled Cancelled
Estimated Creat Clear Cancelled Cancelled
Albumin 5.5 H Cancelled Cancelled
09/23/24
05:30
BUN 44 H
Creatinine 4.8 H*
Estimated Creat Clear
Albumin 3.7 D
09/22/24
23:05
Lactic Acid 1.7
Lab Results - Urine
09/22/24
19:45
Urine Nitrite (Reflex) Negative
Leukocyte Esterase Rfl 1+ A
Urine WBC (Reflex) 6-10
Ur Squamous Epith Cells 0-2
Urine Bacteria (Reflex) Moderate A
--- NOTE | 2024-09-23 11:55 | CM ---
Addendum entered by Binta Ken 09/23/24 12:16:
BCARES consulted and visited. Spoke with girlfriend.
Original Note:
Initial assessment completed with girlfriend of 20 years. Patient in withdrawal, lethargic, somnolent. Patient and girlfriend live together in a 1st floor apartment with no steps to enter. [employer] patient was independent in ADL's and ambulation and
drove. He works construction. No DME or in-home services. No psychiatric or SA inpatient hospitalizations. No service. Support system is girlfriend and Mother. Girlfriend also uses. No HC-POA. No PCP. Pharmacy is [facility] in [place].
--- NOTE | 2024-09-23 12:16 | CON.INTV ---
Consultation
Consultation Request
Date/Time Consultation Requested: 09/23/2024
Date/Time Consultation Performed: 09/23/2024
Requesting Provider: Dr. Friend
Performing Provider: Dr. Akbar Duque
Reason for Consultation: Toxic metabolic encephalopathy-possible drug overdose/withdrawal
Medical History
-
History of Present Illness:
39-year-old man with unknown past medical history presented to the emergency room at [facility] via EMS for unresponsiveness. History obtained from emergency room records. Patient was found minimally responsive and unable to provide any
history. Reportedly his partner found him in this state at home and called EMS.
Patient per record profound tremulous, poorly responsive not following commands. Diaphoretic.
He was covered on emesis.
Received Narcan without response.
He was found to be hypoxemic requiring high flow oxygen.
UDS positive for cocaine and fentanyl
Past Medical History
Past Medical History: Other (Unknown)
Social History
Tobacco: Other ( unable to obtain)
Family History
Family History: Unable to Obtain
Allergies / Home Medications
Allergies
Allergy/AdvReac Type Severity Reaction Status Date / Time
No Known Allergies Allergy Verified 02/04/17 18:27
Home Medications
�Medication �Instructions �Recorded �Confirmed �Last Taken �Type
buprenorphine 8 mg-naloxone 2 mg tab sublingual 09/22/24 Unknown History
sublingual tablet
clonazepam 0.5 mg tablet mg PO 09/22/24 Unknown History
clonidine HCl 0.1 mg tablet 0.1 - 0.2 mg PO Q4HPRN PRN 09/22/24 09/22/24 Unknown History
withdrawal symptoms
hydroxyzine HCl 50 mg tablet 50 mg PO Q6HPRN PRN withdrawal 09/22/24 09/22/24 Unknown History
symptoms
ondansetron HCl 4 mg tablet 4 mg PO Q6HPRN PRN nausea 09/22/24 09/22/24 Unknown History
trazodone 50 mg tablet mg PO 09/22/24 Unknown History
Review of Systems
-
Unable to Obtain full review of systems at this time due to: Other (Unable to provide due to mental status change/acuity)
Vitals / Labs / Diagnostic Testing
Vital Signs
Temp Pulse Resp BP Pulse Ox
98.0 F 101 29 116/79 95
09/23/24 10:54 09/23/24 07:30 09/23/24 07:30 09/23/24 07:30 09/23/24 08:00
Lab Data
09/23/24 03:42
Laboratory Results
09/22/24 09/23/24
22:18 03:42
PT 14.5
INR 1.08
APTT 29.0
pH 7.60 H
pCO2 30 L
pO2 124 H
HCO3 29.5 H
O2 Delivery Level High flow
Microbiology
09/23/24 03:42 Nose Nasal Screen MRSA (PCR) - Final
Staph aureus MRSA
Diagnostic Testing:
Physical Exam
-
HEENT: Normocephalic and Other (Dry mucous membranes)
Cardiovascular: S1/S2
Respiratory: Clear
GI: Soft and Non Distended
Neurology: Other (Somnolent but arousable., Tremulous.) and Other (Following simple commands but unable to provide history. Able to move 4 extremities)
Skin: Warm and Other ( diaphoretic)
Assessment
-
39-year-old man without known past medical history-brought in for change in mental status, unresponsiveness, found to have acute kidney injury, UDS positive with cocaine and fentanyl. We were consulted for further critical care management.
Toxic metabolic encephalopathy: Suspected either overdose/also withdrawal from opiates
UDS positive for cocaine and fentanyl
CT head negative for acute abnormality
Acute kidney injury likely due to volume depletion
Hypernatremia
Hypoxemic respiratory failure-suspect aspiration pneumonitis
Leukocytosis-either reactive versus cannot exclude sepsis.
Assessment and plan:.
Patient is critically ill with abrupt change in mental status-somnolent.
Toxic metabolic- Possible opioid withdrawal on top of cocaine toxicity.
Continue Ativan
Buprenorphine poor opiate withdrawal protocol
Fall precautions
N.p.o.
Keep head of bed elevation
-
Acute kidney injury: Suspect volume depletion
Continue aggressive IV fluids
Potassium repleted-follow
Frequent laboratories
CK pending-unlikely to be significantly elevated given normal LFTs.
Currently not hypotensive-maintain systolic blood pressure greater than 65 mmHg.
Kidney ultrasound and bladder when able
Castañeda in [id number] with
Nephrology following patient
-
Hypoxemic respiratory failure: Requiring initially high flow oxygen-wean down FiO2 as able.
Leukocytosis/afebrile
Chest x-ray without infiltrate
Suspect aspiration pneumonitis
Okay to continue antibiotics for now
Blood culture sent to rule out bacteremia.
Low threshold to discontinue antibiotics if he continues to improve.
-
DVT prophylaxis heparin subcu
-
Critical care statement: A total of 38 minutes of critical care time was provided for this patient today. This includes management of unstable vital signs, evaluation of the patient at bedside, reviewing the patient's pertinent medical records
including ventilator settings, arterial blood gases, radiographs, microbiology, laboratory evaluations and discussion with primary team, critical care nursing, and respiratory therapy.
--- NOTE | 2024-09-23 12:21 | PTCARENOTE ---
no change, resting, visitor at bedside, spoke with BRENDA and Donna, updated, no longer in room at this time. labs obtained and sent. skin remains warm and dry.
[2024-09-23 12:45] LABS: Creatine Phosphokinase 437 U/L (55-170)
[2024-09-23 12:46] LABS: Blood Urea Nitrogen 48 mg/dl (9-20); Carbon Dioxide 27 mmol/L (22-30); Chloride 115 mmol/L (98-107); Estimated Creatinine Clearance 26 ml/min; Glucose 105 mg/dl (70-99); Potassium 3.2 mmol/L (3.5-5.1); Sodium 151 mmol/L (135-145); eGFR 18.17
--- NOTE | 2024-09-23 13:03 | W.PN.HOSP.TC ---
Today's Communication/Plan
-
Monitor vital signs see plan
Monitor mental status closely
MRI
Continue monitor renal function
Hydration
Monitor for withdrawal
Wean oxygen as tolerated
Continue antibiotics for now
Assessment / Plan
Assessment / Plan
General: Appears ill
HEENT: anicteric, PEERL
Respiratory: Other (Decreased at bases - otherwise clear.)
Cardiac: S1/S2 and Tachycardia; No Murmur
GI: Soft, Non Tender, Non Distended and Normal Bowel Sounds
Musculoskeletal: No Edema
Neuro: Other (Somnolent / poorly responsive)
Acute TME likely secondary to substance abuse
Substance Abuse
Overdose +/- Withdrawal
Monitor in ICU, high risk of deterioration\\
- Patient with evident N/V (covered in emesis) and unresponsive / non-verbal.
- CT head in the ED unremarkable.
- Multiple metabolic derangements noted on labs suggestive of significant volume depletion, emesis, etc.
- UDS positive for fentanyl and cocaine - unclear when last use was. No significant response to Narcan given today.
- Point of care EEG monitoring given altered mental state, saccadic eye movements, etc.
- Monitor for evidence of withdrawal symptoms and treat via opioid withdrawal protocol accordingly.
- IV Ativan for any agitation / evident seizure activity / etc.
- Tigan for nausea given QT prolongation on initial EKG - follow for changes.
- Blood cultures given prior confirmed IVDA (and suspected recent use).
- Empiric abx pending culture data. Follow WBC, fever curve, etc.
Acute Hypoxemic Respiratory Failure
- Initial SpO2 in the ED was 85% on room air.
- Has been maintained on high-flow O2 since that time.
- Would attempt to wean O2 as able. Now on 6l
- CXR unremarkable - but highly suspicious for aspiration event given emesis, hypoxemia, etc.
- Cover with empiric abx for now and follow temperature curve / monitor for any new symptoms.
Overnight with questionable seizure-like activity
Continue with Keppra per neurology
MRI pending
Head CT without acute intracranial pathology
Neurology following
Anion Gap Metabolic Acidosis
Hypokalemia
Hypercalcemia
MISAEL
- Anion gap = 23 on initial labs
- Suspect in large part due to volume losses / emesis.
- Aggressive IVF support and follow for improvement.
- Hypokalemia; replete
- Follow labs / lyte and adjust IVFs as needed.
- Follow for improvement in SCr - no prior labs for comparison, but suspect significant MISAEL.
Nephrology following, renal ultrasound
Leukocytosis
- WBC = 34.5. ? stress response.
- Covering with empiric abx for now given IVDA, possible aspiration, etc.
- Follow WBC, fever curve, etc.
- Follow-up culture data.
DVT Prophylaxis: SCDs, hep
Code Status: Full
I spent a total of 52 minutes with the patient or on the floor. More than 50% of this time involved counseling and coordination of care.
Anticipated Discharge: > 48 hours
Subjective/Interval History
-
Date of Service: September 23, 2024
Somnolent
Objective Data
-
Labs:
Laboratory Results
09/23/24 09/23/24 09/23/24
03:42 04:36 05:30
WBC 28.6 H
Hgb 14.4 D
Hct 39.9
Plt Count 259 D
PT 14.5
INR 1.08
APTT 29.0
Sodium Cancelled Cancelled 150 H
Potassium Cancelled Cancelled 3.4 L
Chloride Cancelled Cancelled 113 H
Carbon Dioxide Cancelled Cancelled 27
BUN Cancelled Cancelled 44 H
Creatinine Cancelled Cancelled 4.8 H*
Glucose Cancelled Cancelled 121 H
Calcium Cancelled Cancelled 8.9 D
Total Bilirubin Cancelled Cancelled 1.4 H
AST Cancelled Cancelled 39
ALT Cancelled Cancelled 17
Alkaline Phosphatase Cancelled Cancelled 58
09/23/24
12:14
WBC
Hgb
Hct
Plt Count
PT
INR
APTT
Sodium 151 H
Potassium 3.2 L
Chloride 115 H
Carbon Dioxide 27
BUN 48 H
Creatinine 4.1 H*
Glucose 105 H
Calcium 9.0
Total Bilirubin
AST
ALT
Alkaline Phosphatase
Vital Signs:
Vital Signs
Temp Pulse Resp BP Pulse Ox
98.0 F 93 26 133/69 95
09/23/24 10:54 09/23/24 12:15 09/23/24 12:15 09/23/24 12:00 09/23/24 12:15
I&O
09/22/24 09/23/24 09/24/24
06:59 06:59 06:59
Intake Total 2060 / 2210 950 / 950
Output Total 405 / 405 140 / 140
Balance 1655 / 1805 810 / 810
--- NOTE | 2024-09-23 13:28 | PTCARENOTE ---
complete CHG bath, linens and gown changed. skin remains flushed, warm. shivering and tremors more present with activity and care. oral care, occas NPC. lab results to Dr. Martinez, orders noted, see MAR for K rider specifics. urine output
noted, urine is cloudy, oliguric. pt does nod at times, does not initiate any interaction, cooperative.
[2024-09-23 16:09] LABS: Ammonia < 9 umol/L (9-30)
--- NOTE | 2024-09-23 16:58 | PTCARENOTE ---
to radiology per order for 2 views pelvis pre MRI.
--- NOTE | 2024-09-23 17:18 | PTCARENOTE ---
more awake, trying to speak, asking for water, then 'please please please please'. productive / non-productive cough thick sputum, allows RN to suction back of throat then coughs again. given very few ice chips, cough noted occasionally, holding
off for now, oral care given. IVs infusing along with K rider.
--- NOTE | 2024-09-23 18:10 | PTCARENOTE ---
I/O collected, agitated at brief intervals requesting/demanding water, seen by Dr. Duque, given few ice chips, does clear throat after. sitting upright. resting at times when undisturbed. reviewed plans with pt. labs drawn and sent. oxygen 4l
nc.
[2024-09-23 18:34] LABS: Blood Urea Nitrogen 52 mg/dl (9-20); Calcium 9.2 mg/dl (8.4-10.2); Carbon Dioxide 27 mmol/L (22-30); Chloride 114 mmol/L (98-107); Estimated Creatinine Clearance 28 ml/min; Glucose 104 mg/dl (70-99); Potassium 3.4 mmol/L (3.5-5.1); Sodium 150 mmol/L (135-145); eGFR 19.91
--- NOTE | 2024-09-23 18:40 | PTCARENOTE ---
skin felt warmer than damian thermister temp, R checked, 100.0. Thermister damian temp at that time 99.9
--- NOTE | 2024-09-23 18:45 | PTCARENOTE ---
[address] Martinez via TT. no change in plan. pt presently resting, HOB up, VS noted.
--- NOTE | 2024-09-23 20:00 | PTCARENOTE ---
rec`d pt at 1900 w/ minimal response. awakens to tactile stimuli. only says, 'wa, wa' for water. falls back to sleep. coughs after a few sips. pupils = at a 6 and reactive. Cows continued. minimal cough w/ deep suction. bed alarm on pt. upper extrem
tremors at times. SR to ST on monitor. pt on 6L and POX low 90s. damian draining yellow urine. pt`s skin is red everywhere. afebrile. PIV flushed and patent. call herzog in reach, safe environment maintained.
[2024-09-23] MEDS: HEPARIN 5000 UNITS SC (20:30)
[2024-09-23] MEDS: VENTOLIN NEBULES 2.5 MG INH (22:32)
[2024-09-23] MEDS: 0.45% NACL with KCL 20 MEQ IV (23:13)
[2024-09-24] VITALS (25 sets, daily range): BP systolic 137–196; BP diastolic 81–118; BMI 26.0
[2024-09-24] MEDS: 0.45% NACL with KCL 20 MEQ 1000 IV ×2 (01:01→07:42)
[2024-09-24] MEDS: ZOSYN 50 IV ×4 (01:05→20:33)
--- NOTE | 2024-09-24 01:22 | PTCARENOTE ---
pt desatting to 87%. pt now maxed to 15L midflow. pt POX 89-90%. RT and INTERNET SALESPERSON aware.
[2024-09-24 02:50] LABS: % Basophils 0.1 % (0-2); % Immature Granulocytes 0.6 % (0-0.5); % Lymphocytes 9.3 % (20.5-51.1); % Monocytes 8.7 % (1.7-9.3); % Neutrophils 81.3 % (42.2-75.2); Absolute Immature Granulocytes 0.1 10^3/uL (0-0.05); Absolute Lymphocytes 1.5 10^3/uL (1.2-3.4); Absolute Monocytes 1.4 10^3/uL (0.1-0.6); Hematocrit 38.2 % (39.0-52.0); Hemoglobin 13.3 g/dL (13.0-18.0); Mean Corp Hgb Conc. 34.8 g/dL (33.0-37.0); Mean Corpuscular Hgb 28.1 pg (27.0-31.0); Mean Corpuscular Volume 80.8 fL (80.0-94.0); Mean Platelet Volume 11.7 fL (7.4-10.4); Nucleated Red Blood Cells % 0 % (-); Platelet Count 197 10^3/uL (130-400); Red Blood Cell Count 4.73 10^6/uL (4.70-6.10); Red Cell Dist. Width 13.6 % (11.5-14.5)
[2024-09-24 03:08] LABS: ALT (SGPT) 36 U/L (0-50); AST (SGOT) 67 U/L (17-59); Albumin 3.5 g/dl (3.5-5.0); Alkaline Phosphatase 60 U/L (38-126); Blood Urea Nitrogen 53 mg/dl (9-20); Calcium 8.9 mg/dl (8.4-10.2); Calcium 9.2 mg/dl (8.4-10.2); Carbon Dioxide 26 mmol/L (22-30); Carbon Dioxide 27 mmol/L (22-30); Chloride 117 mmol/L (98-107); Estimated Creatinine Clearance 34 ml/min; Glucose 103 mg/dl (70-99); Glucose 105 mg/dl (70-99); Potassium 3.8 mmol/L (3.5-5.1); Sodium 150 mmol/L (135-145); Total Bilirubin 1.6 mg/dl (0.2-1.3); eGFR 25.42
[2024-09-24 03:11] LABS: Vancomycin Random 15.7 ug/ml
[2024-09-24 03:14] LABS: Magnesium 2.5 mg/dl (1.6-2.3)
[2024-09-24 03:36] LABS: Urine Albumin 3+ (Neg - Trace); Urine Bilirubin Negative (Negative); Urine Character Cloudy (Clear); Urine Glucose 2+ (Negative); Urine Ketone Negative (Negative); Urine Leukocyte 1+ (Negative); Urine Nitrite Negative (Negative); Urine Occult Blood 4+ (Negative); Urine Urobilinogen Negative (Neg - 1+)
[2024-09-24 03:38] LABS: Urine Color Yellow
[2024-09-24 03:41] LABS: Protein/creatinine Ratio 0.6; Urine Protein 113 mg/dl
[2024-09-24 03:56] LABS: Urine Amorphous Seen; Urine Bacteria Many (Negative); Urine Squamous Cell >30 /LPF (Few); Urine Uric Acid Crystals Seen
[2024-09-24 03:57] LABS: Urine Red Blood Cell >100 /HPF (0-2)
[2024-09-24 04:14] LABS: Urine White Cell >100 /HPF (0-5)
[2024-09-24] MEDS: THIAMINE INJECTION 100 MG IV (07:43)
[2024-09-24] MEDS: PROTONIX IV 40 MG IV (07:43)
[2024-09-24] MEDS: HEPARIN 5000 UNITS SC ×2 (07:43→20:31)
[2024-09-24] MEDS: NSS (PRESERVATIVE FREE) 10 ML IV (07:43)
[2024-09-24] MEDS: KEPPRA 500 MG IV ×2 (07:43→20:29)
--- NOTE | 2024-09-24 08:00 | PTCARENOTE ---
Received patient from slot shift supervisor. patient is somnolent, arousable to voice, tactile stimulation, very lethargic and not opening his eyes but was able to state he is at [place]. He denied doing drugs but when asked if he injected drugs or
snorted them he stated 'I snort them'. He has copius oral secretions, extensive mouth care completed. Patient has rhonchi throughout. is on 15L midflow. He is sinus rhythm on monitor. SCDs on bilaterally and on heparin sq for dvt prophylaxis.
Patient is NPO until more arousable and has damian catheter draining meagan urine. will review orders and continue to turn and reposition patient.
--- NOTE | 2024-09-24 08:07 | W.PN.NEURO.1 ---
Today's Communication / Plan
-
.
Subjective/Objective
Subjective Data
Date of Service: September 24, 2024
Neurology follow-up note.
24-hour events: Intermittently hypertensive up to 172/90 7 in the morning, afebrile.
No reported seizures.
Labs: WBCs�16.0, sodium�150, creatinine�3.8�3.1, CK�437
Routine EEG (09/24/2024)�generalized slowing
PMH: Substance use disorder
PSH: Unknown
SH: Active smoker, history of heroin use
FH: Unknown
All:NKDA
ROS: Unable due to encephalopathy.
General: Well developed. In no acute distress.
Cardio: Regular rate and rhythm without murmur. Extremities are without cyanosis or edema.
Neuro:
Mental Status: Lethargic, awakens to verbal and tactile stimuli. Oriented to name, age. Follows simple requests intermittently. Nonfluent.
Cranial Nerves: Orthophoric primary gaze. Pupils 4 mm, equally round and reactive to light.
Motor: Moves all limbs within bed plane
Reflexes: 3+ throughout the upper extremities and knees. 4/2 in AJs. Plantar responses flexor bilaterally.
Sensory: Grimaces to noxious stimuli
Coordination: Intermittent generalized tremor
Gait: deferred
Assessment and Plan:
I. Acute encephalopathy (toxic, metabolic), clinically improved
II. Pathological hyperreflexia. Increased QTc.
III. Substance use disorder
- Continue telemetry monitoring
- Seizure precautions
- Avoid hypoxia and medications known to lower seizure threshold
- Continue Keppra 500 mg twice daily
- Psychiatry consult
- Brain MRI without sanjana
- DVT prophylaxis.
I personally reviewed all radiology and labs along with past medical records pertinent to current medical problems. Total time spent in patient care is 35 minutes.
Thank you for allowing us to participate in the care of this patient. We will continue to follow. Please do not hesitate to contact us with any questions or concerns.
Objective Data
Vital Signs
Temp Pulse Resp BP Pulse Ox
37.2 C 100 34 166/94 91
09/24/24 07:12 09/24/24 06:15 09/24/24 06:15 09/24/24 06:00 09/24/24 06:15
Lab Results
09/24/24 02:27
09/24/24 02:27
PT 14.5 Sec (11.4-14.6) 09/23/24 03:42
INR 1.08 09/23/24 03:42
APTT 29.0 Sec (23.4-35.0) 09/23/24 03:42
Sodium 150 mmol/L (135-145) H 09/24/24 02:27
Sodium 150 mmol/L (135-145) H 09/24/24 02:27
Potassium 3.8 mmol/L (3.5-5.1) 09/24/24 02:27
Potassium 3.8 mmol/L (3.5-5.1) 09/24/24 02:27
BUN 53 mg/dl (9-20) H 09/24/24 02:27
BUN 53 mg/dl (9-20) H 09/24/24 02:27
Glucose 103 mg/dl (70-99) H 09/24/24 02:27
Glucose 105 mg/dl (70-99) H 09/24/24 02:27
Calcium 8.9 mg/dl (8.4-10.2) 09/24/24 02:27
Calcium 9.2 mg/dl (8.4-10.2) 09/24/24 02:27
Ur Buprenorphine Negative (Negative) 09/22/24 19:45
Patient Allergies
No Known Allergies Allergy (Verified 02/04/17 18:27)
Vital Signs and Labs
-
Vital Signs and Labs:
Vital Signs
Temp Pulse Resp BP Pulse Ox
37.3 C 79 20 177/109 95
09/24/24 15:50 09/24/24 15:15 09/24/24 15:15 09/24/24 15:00 09/24/24 15:15
Lab Results
09/24/24 02:27
PT 14.5 Sec (11.4-14.6) 09/23/24 03:42
INR 1.08 09/23/24 03:42
APTT 29.0 Sec (23.4-35.0) 09/23/24 03:42
Sodium 150 mmol/L (135-145) H 09/24/24 02:27
Sodium 150 mmol/L (135-145) H 09/24/24 02:27
Potassium 3.8 mmol/L (3.5-5.1) 09/24/24 02:27
Potassium 3.8 mmol/L (3.5-5.1) 09/24/24 02:27
BUN 53 mg/dl (9-20) H 09/24/24 02:27
BUN 53 mg/dl (9-20) H 09/24/24 02:27
Glucose 103 mg/dl (70-99) H 09/24/24 02:27
Glucose 105 mg/dl (70-99) H 09/24/24 02:27
Calcium 8.9 mg/dl (8.4-10.2) 09/24/24 02:27
Calcium 9.2 mg/dl (8.4-10.2) 09/24/24 02:27
Ur Buprenorphine Negative (Negative) 09/22/24 19:45
Medications
-
Medications:
Generic Name Dose Route Start Last Admin
Trade Name Freq PRN Reason Stop Dose Admin
Acetaminophen 650 mg 09/22/24 22:48
Acetaminophen 325 Mg Tablet PO 10/20/24 22:47
Q4HPRN PRN
Mild Pain / Temp > 101
Albuterol Sulfate 2.5 mg 09/22/24 22:48 09/23/24 22:32
Albuterol Nebs 2.5 Mg/3 Ml Ampul INH 2.5 mg
R Q4HPRN PRN Administration
SOB
Protocol
Albuterol/Ipratropium 3 ml 09/24/24 14:00 09/24/24 13:55
Ipratropium 0.5/Albuterol 3 Mg (3 Ml Ampul) INH 3 ml
R TID JOVANY Administration
Protocol
Buprenorphine 4 mg 09/23/24 08:00
Buprenorphine 2 Mg Sl Tablet SL 09/24/24 08:00
ONCE PRN PRN
opioid cravings/withdrawal sx
Buprenorphine 0 mg 09/24/24 08:00
Buprenorphine 8 Mg Sl Tablet SL 10/08/24 07:59
DAILY JOVANY
Buprenorphine 0 mg 09/23/24 08:00
Buprenorphine 8 Mg Sl Tablet SL 09/23/24 08:01
ONCE ONE
Heparin Sodium 5,000 units 09/23/24 20:00 09/24/24 07:43
Heparin 5,000 Units/Ml 1 Ml Vial SC 10/21/24 19:59 5,000 units
BID JOVANY Administration
Vancomycin HCl 1 each/ Device 0 mls @ 0 mls/hr 09/22/24 22:48
IV
PER PROTOCOL JOVANY
Protocol
As Directed
Piperacillin Sod/Tazobactam Sod 2.25 grams in 50 mls @ 100 mls/hr 09/23/24 14:00 09/24/24 14:13
Zosyn IV 50 mls
Q6H JOVANY Administration
Sodium Chloride 38.5 meq/ 1,009.625 mls @ 120 mls/hr 09/24/24 13:00 09/24/24 15:14
Sterile Water IV 1,009.625 mls
.Q8H25M JOVANY Administration
Labetalol HCl 10 mg 09/24/24 10:53 09/24/24 11:55
Labetalol Hcl 5 Mg/1 Ml (20 Mg/4 Ml) Injection IV 10/22/24 10:52 10 mg
Q6HPRN PRN Administration
SBP >160
Levetiracetam 500 mg 09/23/24 09:00 09/24/24 07:43
Levetiracetam (100 Mg/Ml) 500 Mg/5 Ml Vial IV 10/21/24 08:59 500 mg
Q12 JOVANY Administration
Lorazepam 2 mg 09/22/24 22:48 09/23/24 04:31
Lorazepam 2 Mg/Ml Vial IV 10/20/24 22:47 2 mg
Q4HPRN PRN Administration
Agitation/Withdrawal/Seizure
Pantoprazole Sodium 40 mg 09/23/24 08:00 09/24/24 07:43
Pantoprazole Sodium 40 Mg/10 Ml Vial IV 10/21/24 07:59 40 mg
DAILY JOVANY Administration
Sodium Chloride 0 flush 09/22/24 22:00
Sodium Chloride 0.9% (Flush) Syringe IV 10/20/24 21:59
PER PROTOCOL JOVANY
Sodium Chloride 10 ml 09/23/24 08:00 09/24/24 07:43
Sodium Chloride 0.9% (Preservative Free) 10 Ml Vial IV 10/21/24 07:59 10 ml
DAILY JOVANY Administration
Sodium Chloride 1 ml 09/22/24 22:58
Nss (Pf) 10 Ml Vial For Ativan 2 Mg Dose IV 10/20/24 22:57
Q4HPRN PRN
IV LORAZEPAM DILUTION
Thiamine HCl 100 mg 09/23/24 08:00 09/24/24 07:43
Thiamine (100 Mg/Ml) 2 Ml Vial IV 09/25/24 08:01 100 mg
DAILY JOVANY Administration
Tizanidine HCl 2 mg 09/22/24 22:48
Tizanidine 2 Mg Tablet PO 10/20/24 22:47
Q6HPRN PRN
restlessness,agitation,anxiety
Trimethobenzamide HCl 200 mg 09/22/24 22:48
Trimethobenzamide 200 Mg/2 Ml Vial IM 10/20/24 22:47
Q6HPRN PRN
nausea
Home Medications
-
Home Medications
buprenorphine 8 mg-naloxone 2 mg sublingual tablet tab sublingual 09/22/24
clonazepam 0.5 mg tablet mg PO 09/22/24
clonidine HCl 0.1 mg tablet 0.1 - 0.2 mg PO Q4HPRN PRN withdrawal symptoms 09/22/24
hydroxyzine HCl 50 mg tablet 50 mg PO Q6HPRN PRN withdrawal symptoms 09/22/24
ondansetron HCl 4 mg tablet 4 mg PO Q6HPRN PRN nausea 09/22/24
trazodone 50 mg tablet mg PO 09/22/24
--- NOTE | 2024-09-24 08:39 | PHA.VAN.FU ---
Vancomycin Assessment / Plan
- Assessment
Renal Function: SCR Decreasing (3.1 from 4.1 yesterday)
WBC's are: Trending Down (16 from 28.6 yesterday)
In the past 24 hrs, patient has been: Afebrile
Concomitant Antimicrobials: Zosyn
- Dosing Plan
Continue: Vancomycin dosed by levels
Dosing by Level: Re-dose today (Vancomycin 1250mg IV x1)
- Monitoring Plan
Random Level: 09/25/24 with AM labs
- Follow Up
Pharmacy will continue to follow.
Vancomycin Follow UP
- -
Patient Age: 39
Patient Sex: Male
Vancomycin Day #: 2
Indication: Bacteremia
Requesting Provider: Dr. Friend
Pertinent Antimicrobial Allergies:
NKDA
Height / Weight:
Height 5 ft 11 in
Actual Weight 84.6 kg
Pertinent Past Medical History: IVDU
- Vital Signs / Lab Results
Temp Pulse Resp BP Pulse Ox
99.0 F 100 24 152/101 96
09/24/24 07:12 09/24/24 08:00 09/24/24 08:00 09/24/24 08:00 09/24/24 08:00
Lab Results - Hematology
09/22/24 09/23/24 09/24/24
19:40 03:42 02:27
WBC 34.5 H 28.6 H 16.0 H
Band Neutrophils 0
Lab Results - Chemistry
09/22/24 09/23/24 09/23/24
19:40 03:42 04:36
BUN 36 H Cancelled Cancelled
Creatinine 4.9 H* Cancelled Cancelled
Estimated Creat Clear Cancelled Cancelled
Albumin 5.5 H Cancelled Cancelled
09/23/24 09/23/24 09/23/24
05:30 12:14 17:56
BUN 44 H 48 H 52 H
Creatinine 4.8 H* 4.1 H* 3.8 H
Estimated Creat Clear 26 28
Albumin 3.7 D
09/24/24 09/24/24 09/24/24
02:27 02:27 02:27
BUN 53 H 53 H
Creatinine 3.1 H 3.1 H
Estimated Creat Clear 34
Albumin
09/24/24
02:27
BUN
Creatinine
Estimated Creat Clear 34
Albumin 3.5
09/22/24
23:05
Lactic Acid 1.7
Lab Results - Urine
09/24/24
03:11
Urine Nitrite Negative
Ur Leukocyte Esterase 1+ A
Urine WBC >100 A
Ur Squamous Epith Cells >30
Urine Bacteria Many A
Microbiology Results
09/22/24 23:04 Blood Culture - Preliminary
Blood/Venous No Growth in 24 hours- Final report to follow
09/22/24 23:07 Blood Culture - Preliminary
Blood/Venous No Growth in 24 hours- Final report to follow
09/23/24 03:42 Nasal Screen MRSA (PCR) - Final
Nose Staph aureus MRSA
Therapeutic Drug Monitoring
Random Vancomycin 15.7 ug/ml 09/24/24 02:27
[2024-09-24] MEDS: VANCOCIN 275 MG IV (09:42)
--- NOTE | 2024-09-24 11:14 | EEG.RPT ---
Electroencephalogram Report
Recording
Date of EE09/24/24
Type of EEG: Routine
Length of EEG recordin minutes
Done with Video Recording: Yes
Patient Status: Inpatient
Recording Conditions: Awake and Drowsy
Hyperventilation Performed: No
Photic Stimulation Performed: Yes
Report
LESS THAN 1 HOUR REPORT
LESS THAN 1 HOUR EEG INTERPRETATION:
Mildly abnormal EEG for age due to mild diffuse bihemispheric slowing
CLINICAL CORRELATION:
This study was suggestive of mild diffuse cortical dysfunction without focal abnormality. No seizures were recorded.
Clinical correlation is advised.
METHODS:
A 21 channel digitized electroencephalogram (EEG) was performed at the bedside in the ICU. The 10/20 international system of electrode placement was used with ECG and lateral/vertical eye movements recorded. [employer] quantitative EEG analysis
software was utilized.
QUALITY OF STUDY:
Fair
ELECTROENCEPHALOGRAPHER IMPRESSION(S):
Background
Low amplitude poorly organized anterior-posterior voltage gradient of theta activity, variable
There were no significant asymmetries of background activity noted.
Sleep
Not delineated
Photic Stimulation
Failed to activate the record
ECG
Normal sinus rhythm
Abnormal EEG Activity
None
[2024-09-24] MEDS: TRANDATE 10 MG IV ×2 (11:55→20:58)
--- NOTE | 2024-09-24 12:10 | W.PN.INTV ---
Today's Communication / Plan
Recommendations
Continue as needed Ativan
Chest x-ray with new left lower lobe infiltrate likely pneumonia-continue antibiotics for now
Sputum culture if negative for gram-positive cocci discontinue vancomycin
Nebulizers as needed
Continue oxygen supplementation to maintain pulse ox above 90%
IV hydration
Follow electrolytes and renal function
Aspiration precaution
N.p.o. for now
Assessment
-
39-year-old man without known past medical history-brought in for change in mental status, unresponsiveness, found to have acute kidney injury, UDS positive with cocaine and fentanyl. We were consulted for further critical care management.
Toxic metabolic encephalopathy: Suspected either overdose/also withdrawal from opiates
UDS positive for cocaine and fentanyl
CT head negative for acute abnormality
Acute kidney injury likely due to volume depletion
Hypernatremia
Hypoxemic respiratory failure-suspect aspiration pneumonitis
Leukocytosis-either reactive versus cannot exclude sepsis.
Assessment and plan:.
Patient is critically ill with abrupt change in mental status-somnolent.
Somewhat improved today.
Toxic metabolic- Possible opioid withdrawal on top of cocaine toxicity.
Continue Ativan as needed-it has been held overnight due to lethargy.
Buprenorphine poor opiate withdrawal protocol-hold for now due to prolonged QT.
Fall precautions
N.p.o-not awake enough for orals.
Keep head of bed elevation
-
Acute kidney injury: Suspect volume depletion
Continue IV fluids-nephrology following.
Creatinine is improving
Hypernatremia noted-continue with rehydration.
Follow electrolytes and replete as necessary
-
Mild rhabdomyolysis. Continue hydration.
-
Currently not hypotensive-maintain systolic blood pressure greater than 65 mmHg.
Kidney ultrasound and bladder when able
Castañeda in place-follow urinary output
-
Hypoxemic respiratory failure: Requiring initially high flow oxygen-wean down FiO2 as able.
Suspect aspiration pneumonia based on x-ray from today 09/24/2024. Likely aspiration.
Leukocytosis/afebrile
Chest x-ray without infiltrate on initial x-ray
Repeat chest x-ray 09/24/2024: There is a small to moderate left-sided pleural effusion. Left lower lobe consolidation suspected.
Continue antibiotics Zosyn/vancomycin for now.
MRSA screening negative
Blood culture negative
Obtain a sputum culture will need to be suctioned. If negative for gram-positive then discontinue vancomycin
-
Continue oxygen supplementation to maintain pulse ox above 90%.
Nebulizers as needed for secretion clearance
Unable to perform Acapella device or vest therapy
Minimize sedation as able
-
DVT prophylaxis heparin subcu
-
Critical care statement: A total of 34 minutes of critical care time was provided for this patient today. This includes management of unstable vital signs, evaluation of the patient at bedside, reviewing the patient's pertinent medical records
including ventilator settings, arterial blood gases, radiographs, microbiology, laboratory evaluations and discussion with primary team, critical care nursing, and respiratory therapy.
Subjective Dataa
Subjective Data
Date of Service:
Date of Service: September 24, 2024
Chief Complaint: Tire Repairer Follow Up (Opioid withdrawal/possible aspiration pneumonia)
Subjective:
Remains lethargic but more arousable today
Continues to have intermittent cough and chest congestion
Remains on supplemental oxygen
Review of Systems
General: Other (Difficult to obtain due to mental status change)
Objective Data
Data Reviewed
Vital Signs / I&O / Oxygen:
Vital Signs
Temp Pulse Resp BP Pulse Ox
99.3 F 84 20 175/101 96
09/24/24 11:00 09/24/24 11:45 09/24/24 11:45 09/24/24 11:00 09/24/24 11:45
Intake and Output
09/23/24 09/24/24 09/25/24
06:59 06:59 06:59
Intake Total 2059 / 2209 3632 / 3782 900 / 900
Output Total 405 / 405 1000 / 1125 625 / 625
Balance 1655 / 1805 2632 / 2657 275 / 275
SaO2 96
Nasal Cannula flow liters per 15
minute
Physical Exam
General: Comfortable
HEENT: Normocephalic
Cardiovascular: S1-S2
Respiratory: Rhonchi
GI: Soft and Non Distended
Neurology: Other (Lethargic but arousable. Follows simple commands. Intermittently confused.)
Skin: Warm
Labs/Micro/Reports
Lab Data
09/24/24 02:27
09/24/24 02:27
Microbiology
09/22/24 19:45 Urine Urine Culture - Final
NO GROWTH
09/22/24 23:04 Blood/Venous Blood Culture - Preliminary
No Growth in 24 hours- Final report to follow
09/22/24 23:07 Blood/Venous Blood Culture - Preliminary
No Growth in 24 hours- Final report to follow
09/23/24 03:42 Nose Nasal Screen MRSA (PCR) - Final
Staph aureus MRSA
--- NOTE | 2024-09-24 12:38 | W.PN.NEPH.PH ---
Today's Communication / Plan
-
change to 1/4ns
recheck labs later
Assessment/Plan
-
Impression:
Decreased responsiveness
Acute kidney injury
Hypernatremia
Hypokalemia
Gap metabolic acidosis (223)
Plan:
MISAEL:
- Suspect prerenal he mediated due to hypernatremia and volume depletion, contraction metabolic alkalosis noted on ABG (7.6//124/30) Of unknown unresponsiveness
cr improving to 3.1, non oliguric
Urinalysis notable for 2+ albumin 2+ ketones 1+ leukocyte esterase moderate bacteria no blood
renal US non acute , U PCR 0.6gm/gm of cr but hematuria sample
hypernatremia no change-free water deficit (4.2 liters) will change to 1.4NS and recheck labs later
hypokalemia improved
Bp stable
abx per ICU, CXR noted
dose meds for changing GFR
remains NPO
-
-
Date of Service: September 24, 2024
CC / HPI / ROS
-
Chief Complaint:
MISAEL
History of Present Illness:
cr down to 3.1, k normal 3.8.
sodium no change at 150
Bp stable, WBC 16k
Review of Systems:
Pt not responsive
no fever
Labs
-
Labs:
WBC 16.0 10^3/uL (4.8-10.8) H 09/24/24 02:27
RBC 4.73 10^6/uL (4.70-6.10) 09/24/24 02:27
Hgb 13.3 g/dL (13.0-18.0) 09/24/24 02:27
Hct 38.2 % (39.0-52.0) L 09/24/24 02:27
Plt Count 197 10^3/uL (130-400) D 09/24/24 02:27
Sodium 150 mmol/L (135-145) H 09/24/24 02:27
Sodium 150 mmol/L (135-145) H 09/24/24 02:27
Potassium 3.8 mmol/L (3.5-5.1) 09/24/24 02:27
Potassium 3.8 mmol/L (3.5-5.1) 09/24/24 02:27
Chloride 117 mmol/L (98-107) H 09/24/24 02:27
Chloride 117 mmol/L (98-107) H 09/24/24 02:27
Carbon Dioxide 26 mmol/L (22-30) 09/24/24 02:27
Carbon Dioxide 27 mmol/L (22-30) 09/24/24 02:27
BUN 53 mg/dl (9-20) H 09/24/24 02:27
BUN 53 mg/dl (9-20) H 09/24/24 02:27
Creatinine 3.1 mg/dL (0.7-1.3) H 09/24/24 02:27
Creatinine 3.1 mg/dL (0.7-1.3) H 09/24/24 02:27
eGFR 25.42 09/24/24 02:27
eGFR 25.42 09/24/24 02:27
Glucose 103 mg/dl (70-99) H 09/24/24 02:27
Glucose 105 mg/dl (70-99) H 09/24/24 02:27
Calcium 8.9 mg/dl (8.4-10.2) 09/24/24 02:27
Calcium 9.2 mg/dl (8.4-10.2) 09/24/24 02:27
Albumin 3.5 g/dl (3.5-5.0) 09/24/24 02:27
Physical Exam
-
Vital Signs:
Vital Signs
Temp Pulse Resp BP Pulse Ox
99.3 F 84 20 175/101 96
09/24/24 11:00 09/24/24 11:45 09/24/24 11:45 09/24/24 11:00 09/24/24 11:45
Cardiovascular:: Regular rate and rhythm
Respiratory:: Bilateral: Coarse
Abdomen:: Nontender and Soft
Extremity Edema:: None: Bilateral:
Castañeda Catheter: Yes
--- NOTE | 2024-09-24 12:40 | W.RAPID.EEG ---
Rapid EEG
-
Procedure Date: 09/22/24
Results:
Point of Care EEG Procedure Note
Patient name: CARLITOS BREAUX
Medical ID: [id number]
Date of : 1985
Age: 39
IMPRESSION:
No evidence of status epilepticus
Recording 1 Duration: 2024-09-22 23:03:18 - 2024-09-23 09:42:38
Recording Total Time: 10:39:20 (639 minutes)
Ordering Physician: DR NORIEGA
Recording Technique: This EEG was obtained using a 10 lead, 8 channel circumferential rapid EEG with no parasagittal coverage.
Performed with Lin Reed Status Epilepticus Monitor, ICD-10 [id number]
Clinical History: CARLITOS BREAUX is a 39 year old Undifferentiated AMS patient undergoing EEG to screen for non-convulsive status epilepticus.
Primary Indication: Undifferentiated AMS
Location: ICU/MICU
Medications Recorded during the session:
<b>Lorazepam</b> Nov 19, 2024 - 05:50:37 PM 05:32:49
Background: The background was continuous of overall medium voltage generally symmetric, variable with a posterior dominant rhythm at 18 Hz and reactive
Report prepared by: Lucas Friend
Report generated on: Sep 24, 2024 12:44 PM [facility]
--- NOTE | 2024-09-24 12:59 | PTCARENOTE ---
No change in patient's assessment. continuing to turn and reposition patient. partner at bedside, updated on plan of care.
--- NOTE | 2024-09-24 13:09 | W.PN.HOSP.TC ---
Today's Communication/Plan
-
Monitor vital signs see plan
Monitor mental status closely
Continue with antibiotics
Follow cultures
Continue with fluids per nephrology
Monitor renal function
Assessment / Plan
Assessment / Plan
General: Appears ill
HEENT: anicteric, PEERL
Respiratory: Other (Decreased at bases - otherwise clear.)
Cardiac: S1/S2 and Tachycardia; No Murmur
GI: Soft, Non Tender, Non Distended and Normal Bowel Sounds
Musculoskeletal: No Edema
Neuro: Other (Somnolent / poorly responsive)
Acute TME likely secondary to substance abuse
Substance Abuse
Overdose +/- Withdrawal
Monitor in ICU, high risk of deterioration\\
- Patient with evident N/V (covered in emesis) and unresponsive / non-verbal.
- CT head in the ED unremarkable.
- Multiple metabolic derangements noted on labs suggestive of significant volume depletion, emesis, etc.
- UDS positive for fentanyl and cocaine - unclear when last use was.
-EEG noted
cw keppra per neurology
- Monitor for evidence of withdrawal symptoms and treat via opioid withdrawal protocol accordingly.
- IV Ativan for any agitation / evident seizure activity / etc.
- Tigan for nausea given QT prolongation on initial EKG - follow for changes.
- Blood cultures given prior confirmed IVDA (and suspected recent use).
- Empiric abx pending culture data. Follow WBC, fever curve, etc.
Acute Hypoxemic Respiratory Failure
- Initial SpO2 in the ED was 85% on room air.
- Has been maintained on high-flow O2 since that time.
- Would attempt to wean O2 as able. Now on midflow
- CXR now suspect PNA; cw abx. npo for now
- Cover with empiric abx for now and follow temperature curve / monitor for any new symptoms.
questionable seizure-like activity
Continue with Keppra per neurology
MRI pending
Head CT without acute intracranial pathology
Neurology following
Anion Gap Metabolic Acidosis
Hypokalemia
Hypercalcemia
MISAEL
- Anion gap = 23 on initial labs
- Suspect in large part due to volume losses / emesis.
- Aggressive IVF support and follow for improvement.
- Hypokalemia; replete
- Follow labs / lyte and adjust IVFs as needed.
- Follow for improvement in SCr - no prior labs for comparison, but suspect significant MISAEL.
Nephrology following, renal ultrasound without acute abnormality
Renal function slowly improving
sepsis likely 2/2 PNA; likely aspiration
cw abx
monitor
bcx NGTD
DVT Prophylaxis: SCDs, hep
Code Status: Full
I spent a total of 52 minutes with the patient or on the floor. More than 50% of this time involved counseling and coordination of care.
Anticipated Discharge: > 48 hours
Subjective/Interval History
-
Date of Service: September 24, 2024
somnolent
Objective Data
-
Labs:
Laboratory Results
09/24/24 09/24/24 09/24/24
02:27 02:27 02:27
WBC 16.0 H
Hgb 13.3
Hct 38.2 L
Plt Count 197 D
Sodium 150 H 150 H
Potassium 3.8 3.8
Chloride 117 H
Carbon Dioxide
BUN
Creatinine
Glucose
Calcium
Total Bilirubin
AST
ALT
Alkaline Phosphatase
09/24/24 09/24/24 09/24/24
02:27 02:27 02:27
WBC
Hgb
Hct
Plt Count
Sodium
Potassium
Chloride 117 H
Carbon Dioxide 26 27
BUN 53 H 53 H
Creatinine 3.1 H
Glucose
Calcium
Total Bilirubin
AST
ALT
Alkaline Phosphatase
09/24/24 09/24/24 09/24/24
02:27 02:27 02:27
WBC
Hgb
Hct
Plt Count
Sodium
Potassium
Chloride
Carbon Dioxide
BUN
Creatinine 3.1 H
Glucose 103 H 105 H
Calcium 8.9 9.2
Total Bilirubin 1.6 H
AST 67 H
ALT 36
Alkaline Phosphatase 60
09/24/24
17:00
WBC
Hgb
Hct
Plt Count
Sodium Pending
Potassium Pending
Chloride Pending
Carbon Dioxide Pending
BUN Pending
Creatinine Pending
Glucose Pending
Calcium Pending
Total Bilirubin
AST
ALT
Alkaline Phosphatase
Vital Signs:
Vital Signs
Temp Pulse Resp BP Pulse Ox
99.3 F 73 21 164/95 98
09/24/24 11:00 09/24/24 12:45 09/24/24 12:45 09/24/24 12:00 09/24/24 12:45
I&O
09/23/24 09/24/24 09/25/24
06:59 06:59 06:59
Intake Total 2060 / 2210 3632 / 3782 900 / 900
Output Total 405 / 405 1000 / 1125 625 / 625
Balance 1655 / 1805 2632 / 2657 275 / 275
[2024-09-24] MEDS: 0.45% NACL with KCL 20 MEQ IV (13:54)
[2024-09-24] MEDS: DUONEB 3 ML INH ×2 (13:55→20:35)
[2024-09-24] MEDS: SODIUM CHLORIDE 1009.625 MEQ IV (15:14)
--- NOTE | 2024-09-24 15:37 | W.PN.UPDATE ---
Update Note
Progress Note Update
Blood pressure remains elevated-likely driven by withdrawal.
Not responsive to labetalol IV.
Start clonidine patch and observe.
[2024-09-24] MEDS: CATAPRES-TTS-2 0.2 MG TRANSDERM (17:15)
--- NOTE | 2024-09-24 17:30 | PTCARENOTE ---
Family present at bedside, patient's significant other. admitted to them using fentanyl together prior to patient's admission. Patient was reportedly smoking it. He has remained somnolent/lethargic but is conversant at times. Continuing to turn
and reposition. Patient's significant other also said they are both currently positive for trichomoniasis, but that he is not being treated. Notified hospitalist. Also patient is from [place], states that his facial reconstruction is titanium
for MRI purposes but was unsure, notified neurology.
--- NOTE | 2024-09-24 17:54 | PTCARENOTE ---
Started patient on cardene because of continued high blood pressure.
--- NOTE | 2024-09-24 18:00 | PTCARENOTE ---
patient right AC round to be infiltrated. Incident report filed and IV team notified. Notified nephrology that patient may not have gotten IV fluids.
--- NOTE | 2024-09-24 19:58 | PTCARENOTE ---
Handoff report received from off going RN. Dual RN right arm infiltrate and left arm redness assessment completed. Patient's right arm is +2 edema and cool to the touch. Left upper arm is with scattered blanchable redness. Patient is AAOx3 with
intermittent drowsiness. Patient will be talking to you then becomes lethargic. Tactile stimulation to arouse him, then he will be conscious and oriented again. Pt's asking for water. Explain risk for aspiration with PO intake since pt's unable to
keep prolonged arousal. NSR on the monitor. Temp 99.8 via temp sensing damian catheter. Coarse breath sounds with scattered crackles. SpO2 at 97% on 12 L midflow oxygen. Pt's with occasional moist cough. + bowel sounds. Damian catheter is draining
yellow urine. Bed alarm is in use. VAT team is at the bedside for IV placement. Pt's partner is at the bedside.
--- NOTE | 2024-09-24 20:33 | VATNOTE ---
VAT asked to assess patient's right PIV's, right arm grossly infiltrated at both IV sites. PIVs removed, warm blankets wrapped around patient's right arm and right arm elevated. L ML placed. Primary RN updated, at bedside. Will continue to monitor.
[2024-09-24 20:37] LABS: Blood Urea Nitrogen 45 mg/dl (9-20); Calcium 8.7 mg/dl (8.4-10.2); Carbon Dioxide 27 mmol/L (22-30); Chloride 116 mmol/L (98-107); Estimated Creatinine Clearance 53 ml/min; Glucose 97 mg/dl (70-99); Potassium 3.5 mmol/L (3.5-5.1); Sodium 147 mmol/L (135-145)
[2024-09-24] MEDS: KCL 270 MEQ IV (21:30)
[2024-09-25] VITALS (27 sets, daily range): BP systolic 141–216; BP diastolic 87–118; BMI 26.3
--- NOTE | 2024-09-25 00:52 | PTCARENOTE ---
No changes from previous assessment. Clonidine patch remains on his right shoulder.
[2024-09-25] MEDS: SODIUM CHLORIDE 1009.625 MEQ IV ×2 (01:45→09:23)
[2024-09-25] MEDS: ZOSYN 50 IV (01:48)
[2024-09-25] MEDS: ATIVAN 2 MG IV (01:56)
[2024-09-25] MEDS: TRANDATE 10 MG IV ×3 (03:35→17:15)
[2024-09-25 04:18] LABS: ALT (SGPT) 42 U/L (0-50); AST (SGOT) 45 U/L (17-59); Albumin 3.1 g/dl (3.5-5.0); Alkaline Phosphatase 53 U/L (38-126); Blood Urea Nitrogen 37 mg/dl (9-20); Calcium 8.6 mg/dl (8.4-10.2); Carbon Dioxide 26 mmol/L (22-30); Chloride 116 mmol/L (98-107); Estimated Creatinine Clearance 63 ml/min; Glucose 95 mg/dl (70-99); Potassium 3.7 mmol/L (3.5-5.1); Sodium 146 mmol/L (135-145); Total Bilirubin 1.7 mg/dl (0.2-1.3); Total Protein 5.5 g/dl (6.3-8.2); Vancomycin Random 10.9 ug/ml; eGFR 52.26
[2024-09-25 04:35] LABS: % Basophils 0.1 % (0-2); % Eosinophils 0.4 % (0-6); % Immature Granulocytes 0.4 % (0-0.5); % Lymphocytes 17.5 % (20.5-51.1); % Monocytes 10.3 % (1.7-9.3); % Neutrophils 71.3 % (42.2-75.2); Absolute Lymphocytes 1.8 10^3/uL (1.2-3.4); Absolute Neutrophils 7.1 10^3/uL (1.4-6.5); Hematocrit 36.9 % (39.0-52.0); Hemoglobin 12.9 g/dL (13.0-18.0); Mean Corpuscular Hgb 28.3 pg (27.0-31.0); Mean Corpuscular Volume 80.9 fL (80.0-94.0); Mean Platelet Volume 12.2 fL (7.4-10.4); Nucleated Red Blood Cells % 0 % (-); Platelet Count 171 10^3/uL (130-400); Red Blood Cell Count 4.56 10^6/uL (4.70-6.10); Red Cell Dist. Width 13.4 % (11.5-14.5)
--- NOTE | 2024-09-25 04:41 | PTCARENOTE ---
Patient's SBP has been 190s-200 via legs. Ativan administered at 0156 per Padmini Hudson CRNP.. SBP remained 190s. Trandate prn administered. BP 181/58 with HR of 72. The patient arouses to verbal commands. K rider for potassium of 3.7.
[2024-09-25] MEDS: KCL 270 MEQ IV (04:49)
[2024-09-25] MEDS: DUONEB 3 ML INH ×3 (07:19→20:08)
--- NOTE | 2024-09-25 08:39 | PHA.VAN.FU ---
Vancomycin Assessment / Plan
- Assessment
Renal Function: SCR Decreasing (Decreased to 1.7 today. Will watch one more day. May switch to scheduled dosing.)
WBC's are: Trending Down
In the past 24 hrs, patient has been: Afebrile
Concomitant Antimicrobials: Piperacillin-tazobactam
- Assessment - Therapeutic Drug Monitoring
Random Level: 10.9 ~ 18hrs post Vanc 1250mg
- Dosing Plan
Continue: Dose by level
Dosing by Level: Re-dose today (Vanc 1250mg today--14.6mg/kg)
- Monitoring Plan
Random Level: 09/26 AM
- Follow Up
Pharmacy will continue to follow.
Vancomycin Follow UP
- -
Patient Age: 39
Patient Sex: Male
Vancomycin Day #: 3
Indication: Bacteremia
Requesting Provider: Dr. Friend
Pertinent Antimicrobial Allergies:
NKDA
Height / Weight:
Height 5 ft 11 in
Actual Weight 85.4 kg
Pertinent Past Medical History: IVDU
- Vital Signs / Lab Results
Temp Pulse Resp BP Pulse Ox
99.6 F 70 18 175/99 98
09/25/24 06:00 09/25/24 07:20 09/25/24 07:20 09/25/24 07:00 09/25/24 07:00
Lab Results - Hematology
09/22/24 09/23/24 09/24/24
19:40 03:42 02:27
WBC 34.5 H 28.6 H 16.0 H
Band Neutrophils 0
09/25/24
03:41
WBC 10.0
Band Neutrophils
Lab Results - Chemistry
09/22/24 09/23/24 09/23/24
19:40 03:42 04:36
BUN 36 H Cancelled Cancelled
Creatinine 4.9 H* Cancelled Cancelled
Estimated Creat Clear Cancelled Cancelled
Albumin 5.5 H Cancelled Cancelled
09/23/24 09/23/24 09/23/24
05:30 12:14 17:56
BUN 44 H 48 H 52 H
Creatinine 4.8 H* 4.1 H* 3.8 H
Estimated Creat Clear 26 28
Albumin 3.7 D
09/24/24 09/24/24 09/24/24
02:27 02:27 02:27
BUN 53 H 53 H
Creatinine 3.1 H 3.1 H
Estimated Creat Clear 34
Albumin
09/24/24 09/24/24 09/25/24
02:27 20:16 03:41
BUN 45 H 37 H
Creatinine 2.0 H 1.7 H
Estimated Creat Clear 34 53 63
Albumin 3.5 3.1 L
09/22/24
23:05
Lactic Acid 1.7
Microbiology Results
09/22/24 23:04 Blood Culture - Preliminary
Blood/Venous No Growth in 48 hours- Final report to follow
09/22/24 23:07 Blood Culture - Preliminary
Blood/Venous No Growth in 48 hours- Final report to follow
09/24/24 14:35 Gram Stain - Preliminary
Sputum
09/22/24 19:45 Urine Culture - Final
Urine NO GROWTH
09/23/24 03:42 Nasal Screen MRSA (PCR) - Final
Nose Staph aureus MRSA
Therapeutic Drug Monitoring
Random Vancomycin 10.9 ug/ml 09/25/24 03:41
[2024-09-25] MEDS: ZOSYN IV (08:53)
[2024-09-25] MEDS: SUBUTEX 16 MG SL (08:57)
[2024-09-25] MEDS: THIAMINE INJECTION 100 MG IV (08:58)
[2024-09-25] MEDS: PROTONIX IV 40 MG IV (08:58)
[2024-09-25] MEDS: NSS (PRESERVATIVE FREE) 10 ML IV (08:58)
[2024-09-25] MEDS: HEPARIN 5000 UNITS SC ×2 (08:58→20:12)
[2024-09-25] MEDS: KEPPRA 500 MG IV ×2 (08:59→20:13)
[2024-09-25] MEDS: ZANAFLEX 2 MG PO ×2 (09:07→14:18)
[2024-09-25] MEDS: VANCOCIN 275 MG IV (10:12)
[2024-09-25] MEDS: LEVAQUIN 100 IV (10:36)
--- NOTE | 2024-09-25 10:39 | W.PN.NEPH.PH ---
Today's Communication / Plan
-
likely wean off IVF later today if start po
labs repeat
Assessment/Plan
-
Impression:
Decreased responsiveness
Acute kidney injury
Hypernatremia
Hypokalemia
Gap metabolic acidosis (223)
Plan:
MISAEL: improving with IVF suggest prerenal
cr down to 1.7, non oliguric eyal ferrisey
hypernatremia improving
could change IVF to isotonic later today once he starts po
renal US non acute , U PCR 0.6gm/gm of cr but hematuria sample
Bp high but not sure if accurate readings from leg
clonidine patch ordered per ICU
abx per primary
dose meds for changing GFR
-
-
Date of Service: September 25, 2024
CC / HPI / ROS
-
Chief Complaint:
MISAEL
History of Present Illness:
cr down to 2,
sodium better at 146
Bp stable, WBC 10k better
Review of Systems:
Pt awake
c/o cough, no cp
no fever
Labs
-
Labs:
WBC 10.0 10^3/uL (4.8-10.8) 09/25/24 03:41
RBC 4.56 10^6/uL (4.70-6.10) L 09/25/24 03:41
Hgb 12.9 g/dL (13.0-18.0) L 09/25/24 03:41
Hct 36.9 % (39.0-52.0) L 09/25/24 03:41
Plt Count 171 10^3/uL (130-400) 09/25/24 03:41
Sodium 146 mmol/L (135-145) H 09/25/24 03:41
Potassium 3.7 mmol/L (3.5-5.1) 09/25/24 03:41
Chloride 116 mmol/L (98-107) H 09/25/24 03:41
Carbon Dioxide 26 mmol/L (22-30) 09/25/24 03:41
BUN 37 mg/dl (9-20) H 09/25/24 03:41
Creatinine 1.7 mg/dL (0.7-1.3) H 09/25/24 03:41
eGFR 52.26 09/25/24 03:41
Glucose 95 mg/dl (70-99) 09/25/24 03:41
Calcium 8.6 mg/dl (8.4-10.2) 09/25/24 03:41
Albumin 3.1 g/dl (3.5-5.0) L 09/25/24 03:41
Physical Exam
-
Vital Signs:
Vital Signs
Temp Pulse Resp BP Pulse Ox
99.6 F 70 18 175/99 98
09/25/24 06:00 09/25/24 07:20 09/25/24 07:20 09/25/24 07:00 09/25/24 07:00
Cardiovascular:: Regular rate and rhythm
Respiratory:: Bilateral: Coarse
Abdomen:: Nontender and Soft
Extremity Edema:: None: Bilateral:
Damian Catheter: Yes
--- NOTE | 2024-09-25 11:50 | PTOTSP ---
Speech Therapy
Presentation: Patient was partially oriented and appeared intermittently confused but cooperative. Patient followed simple commands and communicated his desire for eating and drinking.
Per RN, patient tolerated ice chips and pills with thin liquids this AM. Patient is more alert this AM than prior.
Swallowing Function: Patient was positioned upright in his bed. Patient demonstrated intermittent right sided drooling at baseline and during the session. TOOL MAKER APPRENTICE observed patient with several presentations of ice chips, tsp of thin liquids, straw sips
of thin liquids, and bites of puree in which patient appeared to tolerate as he did not exhibit any overt clinical s/sx of aspiration. Patient did demonstrate intermittent moments of pocketing (right side) with puree solids which cleared with thin
liquid wash. Of note, patient demonstrated a moment of confusion, lethargy, and fatigue in the middle of the session. TOOL MAKER APPRENTICE alerted RN and patient appeared to have improved his alertness within ~1 minute. Trials were repeated to ensure tolerance.
Given the above information, recommend trial of IDDSI 4 puree solids and thin liquids (straw/ tsp) with FULL SUPERVISION AND ASSISTANCE to ensure tolerance. PO only when ALERT. See full recs below.
Recommendations:
1) Trial of IDDSI 4 puree solids and thin liquids (straw/ tsp)
2) FULL ASSISTANCE AND SUPERVISION
3) Medications as tolerated
4) Check right side buccal for pocketing after PO trials
5) PO only when ALERT
6) PO only when SpO2> 90% and RR< 30
Plan: TOOL MAKER APPRENTICE will continue to follow to ensure tolerance; pending hospitalization.
--- NOTE | 2024-09-25 12:22 | W.PN.HOSP.TC ---
Today's Communication/Plan
-
Monitor vital signs see plan
Start pur�ed diet per speech
Add Flagyl for trichomoniasis
Continue clonidine
Labetalol as needed
Monitor renal function
Monitor sodium
Assessment / Plan
Assessment / Plan
General: Appears ill
HEENT: anicteric, PEERL
Respiratory: Other (Decreased at bases - otherwise clear.)
Cardiac: S1/S2 and Tachycardia; No Murmur
GI: Soft, Non Tender, Non Distended and Normal Bowel Sounds
Musculoskeletal: No Edema
Neuro: Awake
Acute TME likely secondary to substance abuse
Substance Abuse
Overdose +/- Withdrawal
Monitor in ICU, high risk of deterioration\\
- Patient with evident N/V (covered in emesis) and unresponsive / non-verbal.
- CT head in the ED unremarkable.
- Multiple metabolic derangements noted on labs suggestive of significant volume depletion, emesis, etc.
- UDS positive for fentanyl and cocaine - unclear when last use was. per partner patient smokes and doesnt inject
-EEG noted
cw keppra per neurology
- Monitor for evidence of withdrawal symptoms and treat via opioid withdrawal protocol accordingly.
- IV Ativan for any agitation / evident seizure activity / etc.
- Tigan for nausea given QT prolongation on initial EKG - follow for changes.
- Blood cultures given prior confirmed IVDA (and suspected recent use).
- cw abx
Mental status appears to be slowly improving, monitor for withdrawal
Seen by speech, pur�ed diet
Acute Hypoxemic Respiratory Failure 2/2 PNA
- Initial SpO2 in the ED was 85% on room air.
- Has been maintained on high-flow O2 since that time.
- Would attempt to wean O2 as able. Now on midflow
- CXR now suspect PNA; cw abx.
- Cover with empiric abx for now and follow temperature curve / monitor for any new symptoms.
questionable seizure-like activity
Continue with Keppra per neurology
MRI pending
Head CT without acute intracranial pathology
Neurology following
Hypertension
Likely secondary to withdrawal
Continue with clonidine
Labetalol as needed
Trichomoniasis
per partner both her and patient were diagnosed outpatient
start metronidazole 500 mg twice daily for 7 days
Hyponatremia
Monitor
Anion Gap Metabolic Acidosis
Hypokalemia
Hypercalcemia
MISAEL
- Anion gap = 23 on initial labs
- Suspect in large part due to volume losses / emesis.
- Aggressive IVF support and follow for improvement.
- Hypokalemia; replete
- Follow labs / lyte and adjust IVFs as needed.
- Follow for improvement in SCr - no prior labs for comparison, but suspect significant MISAEL.
Nephrology following, renal ultrasound without acute abnormality
Renal function slowly improving
sepsis likely 2/2 PNA; likely aspiration
cw abx
monitor
bcx NGTD
DVT Prophylaxis: SCDs, hep
Code Status: Full
I spent a total of 52 minutes with the patient or on the floor. More than 50% of this time involved counseling and coordination of care.
Anticipated Discharge: > 48 hours
Subjective/Interval History
-
Date of Service: September 25, 2024
a bit more awake
Objective Data
-
Labs:
Laboratory Results
09/25/24
03:41
WBC 10.0
Hgb 12.9 L
Hct 36.9 L
Plt Count 171
Sodium 146 H
Potassium 3.7
Chloride 116 H
Carbon Dioxide 26
BUN 37 H
Creatinine 1.7 H
Glucose 95
Calcium 8.6
Total Bilirubin 1.7 H
AST 45
ALT 42
Alkaline Phosphatase 53
Vital Signs:
Vital Signs
Temp Pulse Resp BP Pulse Ox
97.7 F 70 20 147/100 98
09/25/24 11:23 09/25/24 11:24 09/25/24 11:24 09/25/24 11:24 09/25/24 11:24
I&O
09/24/24 09/25/24 09/26/24
06:59 06:59 06:59
Intake Total 3632 / 3782 3167.5 / 3355.0 1212.5 / 1212.5
Output Total 1000 / 1125 1540 / 1540 900 / 900
Balance 2632 / 2657 1627.5 / 1815.0 312.5 / 312.5
--- NOTE | 2024-09-25 12:55 | VATNOTE ---
Right arm infiltrate reassessed. Client states his arm feels 'better' today. Right swollen but not severe. Not firm to touch. Arm elevated on pillow.
[2024-09-25] MEDS: FLAGYL 500 MG PO ×2 (14:18→20:12)
[2024-09-25] MEDS: TYLENOL 650 MG PO (14:18)
--- NOTE | 2024-09-25 14:58 | PTCARENOTE ---
Updated assessment unchanged. VS improving thru shift. Patient more awake alert and interactive with staff. Tolerated 75% of diet as ordered. Patient updates with Hospitalist team. Financial Services Representative in and out at bedside for updates. Patient had period
with speech today, he stopped talking and appeared to pass out or fall back to sleep, awoke immediately when called by name, VSS throughout event. Patient had similar episode during day and stated 'i need more subutex' Then again awoke spontaneously
asking for juice or tj radha. Continue to reinforce a events of admission and icu stay. Reinforce positive progress in icu. Patient briefly asking about treatment plan, then requesting to have tv on so he can sleep. Will continue to follow with
hospitalist team, and manager party till transfer. Hourly rounds, safety checks ongoing. Will follow up labs with nephrology. IVF continues will update post bmp.
--- NOTE | 2024-09-25 15:59 | W.PN.NEURO.1 ---
Today's Communication / Plan
-
.
Subjective/Objective
Subjective Data
Date of Service: September 25, 2024
Neurology follow-up note.
24-hour events: Continues to be intermittently hypertensive up to 182/118. Afebrile. Off oxygen.
Mr. Glaser reports no headaches, change in vision or strength.
Routine EEG (09/24/2024)�generalized slowing
Unable to have brain MRI (mental)
No reports of recurrent seizures.
PMH: Substance use disorder
PSH: Unknown
SH: Active smoker, history of heroin use
FH: Unknown
All:NKDA
ROS: Negative for headache, change in vision, strength, sensation, chest pain, abdominal pain. Positive for tremor
General: Well developed. In no acute distress.
Cardio: Regular rate and rhythm without murmur. Extremities are without cyanosis or edema.
Neuro:
Mental Status: Awake, fully oriented, follows complex requests across midline. No hemineglect.
Cranial Nerves: Orthophoric primary gaze. Pupils 4 mm, equally round and reactive to light. No nystagmus or ptosis. No facial weakness, hearing preserved.
Motor: No PT or leg drift.
Reflexes: 3+ throughout the upper extremities and knees. 4/2 in AJs. Plantar responses flexor bilaterally.
Sensory: Normal vibration at toes
Coordination: Intermittent generalized tremor. No dysmetria.
Gait: deferred
Assessment and Plan:
I. Acute encephalopathy (toxic, metabolic), significantly improved.
II. Pathological hyperreflexia. Increased QTc.
III. Substance use disorder
IV. Autonomic dysfunction
- Continue telemetry monitoring
- Seizure precautions
- Continue Keppra 500 mg twice daily with a plan to wean off as outpatient.
- Psychiatry consult
- DVT prophylaxis.
- Outpatient neurology follow-up
- Please recall neurology services any questions or concerns.
I personally reviewed all radiology and labs along with past medical records pertinent to current medical problems. Total time spent in patient care is 35 minutes.
Thank you for allowing us to participate in the care of this patient. Please do not hesitate to contact us with any questions or concerns.
Objective Data
Vital Signs
Temp Pulse Resp BP Pulse Ox
36.8 C 89 22 151/98 98
09/25/24 15:23 09/25/24 14:39 09/25/24 14:39 09/25/24 14:39 09/25/24 14:39
Lab Results
09/25/24 03:41
PT 14.5 Sec (11.4-14.6) 09/23/24 03:42
INR 1.08 09/23/24 03:42
APTT 29.0 Sec (23.4-35.0) 09/23/24 03:42
Sodium 146 mmol/L (135-145) H 09/25/24 03:41
Potassium 3.7 mmol/L (3.5-5.1) 09/25/24 03:41
BUN 37 mg/dl (9-20) H 09/25/24 03:41
Glucose 95 mg/dl (70-99) 09/25/24 03:41
Calcium 8.6 mg/dl (8.4-10.2) 09/25/24 03:41
Ur Buprenorphine Negative (Negative) 09/22/24 19:45
Patient Allergies
No Known Allergies Allergy (Verified 02/04/17 18:27)
Vital Signs and Labs
-
Vital Signs and Labs:
Vital Signs
Temp Pulse Resp BP Pulse Ox
36.8 C 89 22 151/98 98
09/25/24 15:23 09/25/24 14:39 09/25/24 14:39 09/25/24 14:39 09/25/24 14:39
Lab Results
09/25/24 03:41
PT 14.5 Sec (11.4-14.6) 09/23/24 03:42
INR 1.08 09/23/24 03:42
APTT 29.0 Sec (23.4-35.0) 09/23/24 03:42
Sodium 146 mmol/L (135-145) H 09/25/24 03:41
Potassium 3.7 mmol/L (3.5-5.1) 09/25/24 03:41
BUN 37 mg/dl (9-20) H 09/25/24 03:41
Glucose 95 mg/dl (70-99) 09/25/24 03:41
Calcium 8.6 mg/dl (8.4-10.2) 09/25/24 03:41
Ur Buprenorphine Negative (Negative) 09/22/24 19:45
Medications
-
Medications:
Generic Name Dose Route Start Last Admin
Trade Name Freq PRN Reason Stop Dose Admin
Acetaminophen 650 mg 09/22/24 22:48 09/25/24 14:18
Acetaminophen 325 Mg Tablet PO 10/20/24 22:47 650 mg
Q4HPRN PRN Administration
Mild Pain / Temp > 101
Albuterol Sulfate 2.5 mg 09/22/24 22:48 09/23/24 22:32
Albuterol Nebs 2.5 Mg/3 Ml Ampul INH 2.5 mg
R Q4HPRN PRN Administration
SOB
Protocol
Albuterol/Ipratropium 3 ml 09/24/24 14:00 09/25/24 13:47
Ipratropium 0.5/Albuterol 3 Mg (3 Ml Ampul) INH 3 ml
R TID JOVANY Administration
Protocol
Buprenorphine 4 mg 09/25/24 10:00
Buprenorphine 2 Mg Sl Tablet SL
ONCE PRN PRN
opioid cravings/withdrawal sx
Buprenorphine 0 mg 09/26/24 08:00
Buprenorphine 8 Mg Sl Tablet SL 10/10/24 07:59
DAILY JOVANY
Clonidine HCl 0.2 mg 09/24/24 16:00 09/24/24 17:15
Clonidine 0.2 Mg Patch TRANSDERM 10/22/24 15:59 0.2 mg
Q7D JOVANY Administration
Heparin Sodium 5,000 units 09/23/24 20:00 09/25/24 08:58
Heparin 5,000 Units/Ml 1 Ml Vial SC 10/21/24 19:59 5,000 units
BID JOVANY Administration
Vancomycin HCl 1 each/ Device 0 mls @ 0 mls/hr 09/22/24 22:48
IV
PER PROTOCOL JOVANY
Protocol
As Directed
Sodium Chloride 38.5 meq/ 1,009.625 mls @ 120 mls/hr 09/24/24 13:00 09/25/24 09:23
Sterile Water IV 1,009.625 mls
.Q8H25M JOVANY Administration
Levofloxacin/Dextrose 500 mg in 100 mls @ 100 mls/hr 09/25/24 10:00 09/25/24 10:36
Levaquin IV 100 mls
Q48H JOVANY Administration
Labetalol HCl 10 mg 09/24/24 10:53 09/25/24 10:36
Labetalol Hcl 5 Mg/1 Ml (20 Mg/4 Ml) Injection IV 10/22/24 10:52 10 mg
Q6HPRN PRN Administration
SBP >160
Levetiracetam 500 mg 09/23/24 09:00 09/25/24 08:59
Levetiracetam (100 Mg/Ml) 500 Mg/5 Ml Vial IV 10/21/24 08:59 500 mg
Q12 JOVANY Administration
Lorazepam 2 mg 09/22/24 22:48 09/25/24 01:56
Lorazepam 2 Mg/Ml Vial IV 10/20/24 22:47 2 mg
Q4HPRN PRN Administration
Agitation/Withdrawal/Seizure
Metronidazole 500 mg 09/25/24 13:00 09/25/24 14:18
Metronidazole 500 Mg Tablet PO 10/02/24 12:59 500 mg
BID JOVANY Administration
Pantoprazole Sodium 40 mg 09/23/24 08:00 09/25/24 08:58
Pantoprazole Sodium 40 Mg/10 Ml Vial IV 10/21/24 07:59 40 mg
DAILY JOVANY Administration
Sodium Chloride 0 flush 09/22/24 22:00
Sodium Chloride 0.9% (Flush) Syringe IV 10/20/24 21:59
PER PROTOCOL JOVANY
Sodium Chloride 10 ml 09/23/24 08:00 09/25/24 08:58
Sodium Chloride 0.9% (Preservative Free) 10 Ml Vial IV 10/21/24 07:59 10 ml
DAILY JOVANY Administration
Sodium Chloride 1 ml 09/22/24 22:58
Nss (Pf) 10 Ml Vial For Ativan 2 Mg Dose IV 10/20/24 22:57
Q4HPRN PRN
IV LORAZEPAM DILUTION
Tizanidine HCl 2 mg 09/22/24 22:48 09/25/24 14:18
Tizanidine 2 Mg Tablet PO 10/20/24 22:47 2 mg
Q6HPRN PRN Administration
restlessness,agitation,anxiety
Trimethobenzamide HCl 200 mg 09/22/24 22:48
Trimethobenzamide 200 Mg/2 Ml Vial IM 10/20/24 22:47
Q6HPRN PRN
nausea
Home Medications
-
Home Medications
buprenorphine 8 mg-naloxone 2 mg sublingual tablet tab sublingual 09/22/24
clonazepam 0.5 mg tablet mg PO 09/22/24
clonidine HCl 0.1 mg tablet 0.1 - 0.2 mg PO Q4HPRN PRN withdrawal symptoms 09/22/24
hydroxyzine HCl 50 mg tablet 50 mg PO Q6HPRN PRN withdrawal symptoms 09/22/24
ondansetron HCl 4 mg tablet 4 mg PO Q6HPRN PRN nausea 09/22/24
trazodone 50 mg tablet mg PO 09/22/24
[2024-09-25 16:31] LABS: Blood Urea Nitrogen 27 mg/dl (9-20); Calcium 8.6 mg/dl (8.4-10.2); Carbon Dioxide 24 mmol/L (22-30); Chloride 112 mmol/L (98-107); Estimated Creatinine Clearance 89 ml/min; Glucose 124 mg/dl (70-99); Potassium 3.4 mmol/L (3.5-5.1); Sodium 141 mmol/L (135-145); eGFR > 60.00
--- NOTE | 2024-09-25 16:49 | W.PN.INTV ---
Today's Communication / Plan
Recommendations
- Speech therapy evaluation, if clears, start p.o.
- Currently off all infusions, saturating well on room air, mental status improved, can be transferred out of ICU to IMU
- Follow-up chest x-ray in a.m.
- Switch IV fluids to Ringer lactate, replace oral potassium
- Once transferred out of ICU, equipment installer will sign off
Assessment
-
39-year-old man without known past medical history-brought in for change in mental status, unresponsiveness, found to have acute kidney injury, UDS positive with cocaine and fentanyl. We were consulted for further critical care management.
09/25 Overview: Patient currently saturating 94% on room air. MAP noted to be 125, not on any pressors. Patient awake and alert. Currently IV fluids infusing with bicarb.
#1. Toxic metabolic encephalopathy: Suspected either overdose/also withdrawal from opiates
- UDS positive for cocaine and fentanyl
- CT head negative for acute abnormality
- More alert, awake and interactive. Speech therapy consulted, cleared to take p.o.
- Neurology service on case, currently on Keppra twice a day for suspected seizure-like activity
- Buprenorphine dosing started
#2. Acute Hypoxemic Respiratory Failure, suspect related to aspiration, LLL pneumonia and pleural effusion
- Currently saturating 94% on room air
- Chest x-ray reviewed, left lower lobe atelectasis with possible trace pleural effusion
- Increase activity, follow-up chest x-ray in a.m.
- MRSA screen positive, continue IV vancomycin and levofloxacin. Discontinue Flagyl
- Initial SpO2 in the ED was 85% on room air.
- Has been maintained on high-flow O2 since that time.
- Would attempt to wean O2 as able. Now on midflow
- CXR now suspect PNA; cw abx.
- Cover with empiric abx for now and follow temperature curve / monitor for any new symptoms.
#3. Hypertension
- Suspect exacerbated by withdrawal
- Currently on clonidine patch, likely can transition to p.o. once starts to take p.o. more reliably
#4. MISAEL with anion gap metabolic acidosis, hypernatremia
- Suspect prerenal, responded well to IV fluids-
- Creatinine significantly improved, switch IV fluids to Ringer lactate, replace potassium
- Hyponatremia resolved
- Nephrology service on case
DVT prophylaxis heparin subcu
-
Critical care statement: A total of 48 minutes of critical care time was provided for this patient today. This includes management of unstable vital signs, evaluation of the patient at bedside, reviewing the patient's pertinent medical records
including ventilator settings, arterial blood gases, radiographs, microbiology, laboratory evaluations and discussion with primary team, critical care nursing, and respiratory therapy.
Subjective Dataa
Subjective Data
Date of Service:
Date of Service: September 25, 2024
Chief Complaint: Assessment Nurse Follow Up (Opioid withdrawal/possible aspiration pneumonia)
Subjective:
Patient more awake alert, comfortably lying in bed, reports feeling hungry
Review of Systems
Genitourinary: Other (No new symptoms reported)
Objective Data
Data Reviewed
Vital Signs / I&O / Oxygen:
Vital Signs
Temp Pulse Resp BP Pulse Ox
98.2 F 89 22 151/98 98
09/25/24 15:23 09/25/24 14:39 09/25/24 14:39 09/25/24 14:39 09/25/24 14:39
Intake and Output
09/24/24 09/25/24 09/26/24
06:59 06:59 06:59
Intake Total 3632 / 3782 3167.5 / 3355.0 2577.5 / 2577.5
Output Total 1000 / 1125 1540 / 1540 2100 / 2100
Balance 2632 / 2657 1627.5 / 1815.0 477.5 / 477.5
SaO2 98
Nasal Cannula flow liters per 12
minute
Physical Exam
General: Comfortable
HEENT: Normocephalic
Cardiovascular: S1-S2
Respiratory: Clear
GI: Soft and Non Distended
Neurology: Awake and Alert
Skin: Warm
Labs/Micro/Reports
Lab Data
09/25/24 03:41
09/25/24 15:58
Microbiology
09/24/24 14:35 Sputum Respiratory Culture - Preliminary
Veronica albicans
09/24/24 14:35 Sputum Gram Stain - Preliminary
09/22/24 23:04 Blood/Venous Blood Culture - Preliminary
No Growth in 48 hours- Final report to follow
09/22/24 23:07 Blood/Venous Blood Culture - Preliminary
No Growth in 48 hours- Final report to follow
09/22/24 19:45 Urine Urine Culture - Final
NO GROWTH
09/23/24 03:42 Nose Nasal Screen MRSA (PCR) - Final
Staph aureus MRSA
[2024-09-25] MEDS: SODIUM CHLORIDE IV (17:03)
[2024-09-25] MEDS: KCL ELIXIR 40 MEQ PO (17:09)
[2024-09-25] MEDS: LR 1000 IV (17:09)
--- NOTE | 2024-09-25 18:21 | PTCARENOTE ---
Patient eating 75% of dinner. Unassisted but with supervision. Watching tv and interacting appropriately with staff. Ongoing vital sign trends. Remains on room air. Update with nephrology, center mgr and hospitalist teams. Now downgraded to IMU
status. Will update speech, plan to adv diet as tolerated. Follow up meds and evaluation via emar. Hourly rounds and patient safety checks ongoing. Call herzog instruct demo and in use prn. Follow up labs and chest ray as ordered for am.
--- NOTE | 2024-09-25 18:25 | PTCARENOTE ---
Updates wit rehabilitation psychologist team.Family planning transition to comfort cares. Family in and out at bedside. Hoping to speak with case management and hospice team tomorrow. Await patients brother. Daughter states she will attempt to wait till tomorrow
but doesn't want her mother to suffer anymore. Continue to address ongoing pain issues. Follow up medications and follow up relief. Supportive cares ongoing.
[2024-09-25] MEDS: SUBUTEX 4 MG SL (20:12)
--- NOTE | 2024-09-25 21:45 | PTCARENOTE ---
Assumed care of pt at 1900. Pt is A/O x4, flat affect noted. No c/o pain. Pt asking why he hasn't gotten his withdrawal medication all day, educated patient about what meds he has received today at what time, he wanted to know why he wasn't getting
Suboxone since he takes that at home, discussed with patient that Suboxone and Subutex both have buprenorphine and he is getting Subutex based on a withdrawal protocol at specific times. Pt given a PRN dose with HS meds, see EMAR and COWS flowsheet
for details. Physical assessment as documented in nursing shift assessment flowsheet. SR 80s on monitor. SpO2 spot checked, 98% on RA. Bed alarm activated.
[2024-09-26] VITALS (15 sets, daily range): BP systolic 130–180; BP diastolic 78–125; PULSE 91–92; BMI 26.4
[2024-09-26] MEDS: TRANDATE 10 MG IV (01:19)
[2024-09-26] MEDS: ZANAFLEX 2 MG PO (03:10)
[2024-09-26 03:30] LABS: % Basophils 0.2 % (0-2); % Eosinophils 1.4 % (0-6); % Immature Granulocytes 0.9 % (0-0.5); % Lymphocytes 22.2 % (20.5-51.1); % Monocytes 10.2 % (1.7-9.3); % Neutrophils 65.1 % (42.2-75.2); Absolute Eosinophils 0.2 10^3/uL (0-0.7); Absolute Immature Granulocytes 0.1 10^3/uL (0-0.05); Absolute Lymphocytes 2.4 10^3/uL (1.2-3.4); Absolute Monocytes 1.1 10^3/uL (0.1-0.6); Absolute Neutrophils 6.9 10^3/uL (1.4-6.5); Hematocrit 37.2 % (39.0-52.0); Hemoglobin 12.8 g/dL (13.0-18.0); Mean Corp Hgb Conc. 34.4 g/dL (33.0-37.0); Mean Corpuscular Hgb 27.8 pg (27.0-31.0); Mean Corpuscular Volume 80.7 fL (80.0-94.0); Mean Platelet Volume 11.6 fL (7.4-10.4); Nucleated Red Blood Cells % 0 % (-); Platelet Count 180 10^3/uL (130-400); Red Blood Cell Count 4.61 10^6/uL (4.70-6.10); White Blood Cell Count 10.6 10^3/uL (4.8-10.8)
[2024-09-26 03:57] LABS: ALT (SGPT) 61 U/L (0-50); AST (SGOT) 60 U/L (17-59); Albumin 3.1 g/dl (3.5-5.0); Alkaline Phosphatase 58 U/L (38-126); Blood Urea Nitrogen 19 mg/dl (9-20); Calcium 8.8 mg/dl (8.4-10.2); Carbon Dioxide 22 mmol/L (22-30); Chloride 112 mmol/L (98-107); Estimated Creatinine Clearance 97 ml/min; Glucose 87 mg/dl (70-99); Magnesium 2.1 mg/dl (1.6-2.3); Potassium 3.8 mmol/L (3.5-5.1); Sodium 140 mmol/L (135-145); Total Bilirubin 1.2 mg/dl (0.2-1.3); Total Protein 5.5 g/dl (6.3-8.2); eGFR > 60.00
[2024-09-26 04:49] LABS: Vancomycin Random 8.8 ug/ml
[2024-09-26] MEDS: LR 1000 IV (04:58)
[2024-09-26] MEDS: KCL 20 MEQ PO (06:24)
[2024-09-26] MEDS: DUONEB 3 ML INH ×3 (07:08→18:08)
--- NOTE | 2024-09-26 07:45 | PHA.VAN.FU ---
Vancomycin Assessment / Plan
- Assessment
Renal Function: SCR Decreasing
WBC's are: Trending Down
In the past 24 hrs, patient has been: Afebrile
Concomitant Antimicrobials: Levofloxacin
- Assessment - Therapeutic Drug Monitoring
Random Level: R = 8.8
- Dosing Plan
Adjust Regimen to: Vanc 1250mg IV q12H
New Regimen Predicts: AUC (521.5), Peak (32.57), Trough (13.35)
- Monitoring Plan
No level(s) ordered at this time: Consider levels after 09/27 1800 dose
- Follow Up
Pharmacy will continue to follow.
Vancomycin Follow UP
- -
Patient Age: 39
Patient Sex: Male
Vancomycin Day #: 4
Indication: Bacteremia
Requesting Provider: Dr. Friend
Pertinent Antimicrobial Allergies:
NKDA
Height / Weight:
Height 5 ft 11 in
Actual Weight 85.8 kg
Pertinent Past Medical History: IVDU
- Vital Signs / Lab Results
Temp Pulse Resp BP Pulse Ox
98.5 F 77 16 156/104 97
09/26/24 07:32 09/26/24 07:11 09/26/24 07:11 09/26/24 06:00 09/26/24 03:32
Lab Results - Hematology
09/24/24 09/25/24 09/26/24
02:27 03:41 03:19
WBC 16.0 H 10.0 10.6
Lab Results - Chemistry
09/23/24 09/23/24 09/24/24
12:14 17:56 02:27
BUN 48 H 52 H 53 H
Creatinine 4.1 H* 3.8 H
Estimated Creat Clear 26 28
Albumin
09/24/24 09/24/24 09/24/24
02:27 02:27 02:27
BUN 53 H
Creatinine 3.1 H 3.1 H
Estimated Creat Clear 34 34
Albumin 3.5
09/24/24 09/25/24 09/25/24
20:16 03:41 15:58
BUN 45 H 37 H 27 H
Creatinine 2.0 H 1.7 H 1.2
Estimated Creat Clear 53 63 89
Albumin 3.1 L
09/26/24
03:19
BUN 19
Creatinine 1.1
Estimated Creat Clear 97
Albumin 3.1 L
Microbiology Results
09/22/24 23:07 Blood Culture - Preliminary
Blood/Venous No Growth in 72 hours- Final report to follow
09/22/24 23:04 Blood Culture - Preliminary
Blood/Venous No Growth in 72 hours- Final report to follow
09/24/24 14:35 Respiratory Culture - Preliminary
Sputum Veronica albicans
Gram Stain - Preliminary
09/22/24 19:45 Urine Culture - Final
Urine NO GROWTH
Therapeutic Drug Monitoring
Random Vancomycin 8.8 ug/ml 09/26/24 03:19
[2024-09-26] MEDS: VANCOCIN 275 MG IV (08:32)
[2024-09-26] MEDS: FLAGYL 500 MG PO ×2 (08:33→20:35)
[2024-09-26] MEDS: HEPARIN 5000 UNITS SC ×2 (08:33→20:35)
[2024-09-26] MEDS: NSS (PRESERVATIVE FREE) 10 ML IV (08:34)
[2024-09-26] MEDS: PROTONIX IV 40 MG IV (08:34)
--- NOTE | 2024-09-26 08:43 | PTOTSP ---
Dysphagia Therapy
Impression: Suspect mild oral and possible pharyngeal dysphagia related to acute encephalopathy in setting of substance abuse.
Recommendations:
1) IDDSI Level 6 Soft/Bite sized solids and thin liquids (straw/ tsp)
2) FULL ASSISTANCE AND SUPERVISION
3) Medications as tolerated
4) Check for pocketing after PO trials; alternate solids and liquids to clear oral cavity
5) PO only when ALERT
6) PO only when SpO2> 90% and RR< 30
[2024-09-26] MEDS: KEPPRA 500 MG IV ×2 (09:06→20:35)
--- NOTE | 2024-09-26 09:41 | VATNOTE ---
During routine assessment, sites of R arm infiltration monitored. Slight swelling noted, no erythema, and pt reports 'soreness.' Heat applied, will continue to monitor.
--- NOTE | 2024-09-26 10:22 | W.PN.NEPH.PH ---
Today's Communication / Plan
-
encourage po intake
follow labs
Assessment/Plan
-
Impression:
Decreased responsiveness
Acute kidney injury
Hypernatremia
Hypokalemia
Gap metabolic acidosis (223)
Plan:
MISAEL: improving with IVF suggest prerenal
cr down to 1.1, polyuric likely post ATN diuresis, U osmo 360, na 130
ok to d/c damian
hypernatremia resolved
po intake is good, d/c IVF
renal US non acute , U PCR 0.6gm/gm of cr but hematuria sample
Bp stable on clonidine patch
abx per primary
will s/o, call with ?s
-
-
Date of Service: September 26, 2024
CC / HPI / ROS
-
Chief Complaint:
MISAEL
History of Present Illness:
cr down to 1.1,
sodium better at 140
Bp stable, WBC 10k
Review of Systems:
Pt awake
no complaints but asking suboxone
no fever, no n /v
Labs
-
Labs:
WBC 10.6 10^3/uL (4.8-10.8) 09/26/24 03:19
RBC 4.61 10^6/uL (4.70-6.10) L 09/26/24 03:19
Hgb 12.8 g/dL (13.0-18.0) L 09/26/24 03:19
Hct 37.2 % (39.0-52.0) L 09/26/24 03:19
Plt Count 180 10^3/uL (130-400) 09/26/24 03:19
Sodium 140 mmol/L (135-145) 09/26/24 03:19
Potassium 3.8 mmol/L (3.5-5.1) 09/26/24 03:19
Chloride 112 mmol/L (98-107) H 09/26/24 03:19
Carbon Dioxide 22 mmol/L (22-30) 09/26/24 03:19
BUN 19 mg/dl (9-20) 09/26/24 03:19
Creatinine 1.1 mg/dL (0.7-1.3) 09/26/24 03:19
eGFR > 60.00 09/26/24 03:19
Glucose 87 mg/dl (70-99) 09/26/24 03:19
Calcium 8.8 mg/dl (8.4-10.2) 09/26/24 03:19
Albumin 3.1 g/dl (3.5-5.0) L 09/26/24 03:19
Physical Exam
-
Vital Signs:
Vital Signs
Temp Pulse Resp BP Pulse Ox
98.6 F 96 16 130/82 96
09/26/24 11:34 09/26/24 14:11 09/26/24 14:11 09/26/24 10:52 09/26/24 14:11
Cardiovascular:: Regular rate and rhythm
Respiratory:: Bilateral: Coarse
Abdomen:: Nontender and Soft
Extremity Edema:: None: Bilateral:
Damian Catheter: Yes
[2024-09-26 10:30] LABS: Osmolality Urine 360 mOsm/kg (300-900)
[2024-09-26 10:44] LABS: Urine Sodium 130 mmol/L (30-90)
[2024-09-26] MEDS: OMNICEF 300 MG PO ×2 (11:16→20:35)
[2024-09-26] MEDS: SUBUTEX 16 MG SL (11:16)
[2024-09-26] MEDS: VIBRAMYCIN 100 MG PO ×2 (11:17→20:35)
--- NOTE | 2024-09-26 11:24 | PTCARENOTE ---
updates with hospitalist at bedside with patient. Nephrology and neurology thru shift. Garry cui. Urine labs obtained. Girlfriend/ at bedside updates as per patient request. Work with pharmacy team and hospitalist. VSS and as documented. Out
of bed to chair, working with physical therapy, exercises and mobility program. Continue teaching and supportive cares ongoing.
--- NOTE | 2024-09-26 11:56 | W.PN.HOSP.TC ---
Addendum entered and electronically signed by Julián Altamirano MD 10/04/24 11:47:
Sepsis was present on admission
Addendum entered and electronically signed by Julián Altamirano MD 10/04/24 08:27:
Sepsis secondary to pneumonia
Original Note:
Today's Communication/Plan
-
Monitor vitals
See plan
Okay to transfer to telemetry
Discussed with pharmacy, Subutex today
Continue with antibiotics
Levaquin stopped due to elevated QTc
Assessment / Plan
Assessment / Plan
General: Appears ill
HEENT: anicteric, PEERL
Respiratory: Other (Decreased at bases - otherwise clear.)
Cardiac: S1/S2 and Tachycardia; No Murmur
GI: Soft, Non Tender, Non Distended and Normal Bowel Sounds
Musculoskeletal: No Edema
Neuro: Awake
Acute TME likely secondary to substance abuse
Substance Abuse
Overdose +/- Withdrawal
Now improving, transfer to floors
Mental status improving
- CT head in the ED unremarkable.
- Multiple metabolic derangements noted on labs suggestive of significant volume depletion, emesis, etc.
- UDS positive for fentanyl and cocaine - unclear when last use was. per partner patient smokes and doesnt inject
-EEG noted
cw keppra per neurology, follow-up with neurology outpatient
- Currently getting Subutex; discussed with pharmacy. Patient is on Suboxone outpatient
- Tigan for nausea given QT prolongation on initial EKG - follow for changes.
- Blood cultures given prior confirmed IVDA (and suspected recent use). NGTD
DC levofloxacin due to elevated QTc, transition to p.o. cefdinir and doxycycline to complete course. Flagyl is for trichomoniasis
Mental status appears to be slowly improving, monitor for withdrawal
Seen by speech, now on IDDS6 diet
Castañeda to be DC'd by COURT CRIER
Acute Hypoxemic Respiratory Failure 2/2 PNA
- Initial SpO2 in the ED was 85% on room air.
- Has been maintained on high-flow O2 since that time.
- Now weaned off oxygen
- CXR now suspect PNA; cw abx.
- Continue with antibiotics
questionable seizure-like activity
Continue with Keppra per neurology
MRI pending
Head CT without acute intracranial pathology
Neurology following
Hypertension
Likely secondary to withdrawal
Continue with clonidine
Labetalol as needed
Elevated QTc
Monitor
Trichomoniasis
per partner both her and patient were diagnosed outpatient
start metronidazole 500 mg twice daily for 7 days
Hyponatremia
Monitor
Anion Gap Metabolic Acidosis
Hypokalemia
Hypercalcemia
MISAEL
- Anion gap = 23 on initial labs
- Suspect in large part due to volume losses / emesis.
- Aggressive IVF support and follow for improvement.
- Hypokalemia; replete
- Follow labs / lyte and adjust IVFs as needed.
- Follow for improvement in SCr - no prior labs for comparison, but suspect significant MISAEL.
Nephrology following, renal ultrasound without acute abnormality
Renal function slowly improving. DC further fluid
sepsis likely 2/2 PNA; likely aspiration
cw abx
monitor
bcx NGTD
DVT Prophylaxis: SCDs, hep
Code Status: Full
I spent a total of 51 minutes with the patient or on the floor. More than 50% of this time involved counseling and coordination of care.
Anticipated Discharge: 24 - 48 hours
Subjective/Interval History
-
Date of Service: September 26, 2024
Denies nausea
Objective Data
-
Labs:
Laboratory Results
09/26/24
03:19
WBC 10.6
Hgb 12.8 L
Hct 37.2 L
Plt Count 180
Sodium 140
Potassium 3.8
Chloride 112 H
Carbon Dioxide 22
BUN 19
Creatinine 1.1
Glucose 87
Calcium 8.8
Total Bilirubin 1.2
AST 60 H
ALT 61 H
Alkaline Phosphatase 58
Vital Signs:
Vital Signs
Temp Pulse Resp BP Pulse Ox
98.6 F 96 28 130/82 99
09/26/24 11:34 09/26/24 10:52 09/26/24 10:52 09/26/24 10:52 09/26/24 09:30
I&O
09/25/24 09/26/24 09/27/24
06:59 06:59 06:59
Intake Total 3167.5 / 3355.0 4537.5 / 4737.5 1020 / 1020
Output Total 1540 / 1540 4925 / 5275 1550 / 1550
Balance 1627.5 / 1815.0 -387.5 / -537.5 -530 / -530
[2024-09-26] MEDS: TYLENOL 650 MG PO (17:50)
[2024-09-26] MEDS: SUBUTEX 4 MG SL (17:58)
[2024-09-26] MEDS: MAALOX 30 ML PO (20:40)
[2024-09-26] MEDS: NARCAN 0.4 MG IV (21:23)
--- NOTE | 2024-09-26 22:06 | PTCARENOTE ---
Pt received from previous shift in bed w/significant other. AAOx3. c/o indigestion. [employer] covering house contacted, electronic orders received for maalox. RN returned to room for med pass and assessment. Requested significant other to utilize
chair in room, explained that bed/bathroom are for patient use only. Nicotine vape on bedside table. Pt then asks 'can you flush this IV?' Midline noted to have blood back up in it. Pulled of approximately 5 mL blood in syringe before flushing
and giving IV keppraPt's speech slow, movements slow. Pupils dilated. After neuro exam completed, significant other packing up belongings and exited room. Concerns for drug use communicated to [employer] covering house and to Nursing Dielectric Embossing Machine Operator.
Electronic orders received for IV narcan. Security contacted for standby. IV narcan administered (refer to MAR). Pt asked 'what was that' Explained IV narcan was given. Asked patient if he used anything, became very defensive, did not answer
question. Coughing. States he has been clean for 10 days. Reiterated tox UDS was + for fentanyl/cocaine. Pt states 'that's not possible'. Now requesting AMA. [employer] made aware and up to see pt, AMA paperwork complete. Midline pulled --> length
20 cm, telemetry removed. Pt asking 'so I am now dried out after what you gave me right?' Not receptive to any eduaction. Pt left AMA.
--- NOTE | 2024-09-26 23:00 | W.PN.UPDATE ---
Update Note
Progress Note Update
Notified by nursing patient appears to have used something while girlfriend was present. He asked the nurse to 'flush the IV' which was noted to have blood in the tubing (midline). At change of shift walking rounds girlfriend was in bed with him.
Nurse then came in to give evening medications and found him with dilated pupils, slowed speech, slowed verbal responses. No seizure activity noted. GF left room as nurse started neuro exam. Upon questioning by nurse he became belligerent and
insisted on leaving AMA. Narcan IV had been given which he was upset about. Explained he presented as being 'high on something' quantity unknown to us as well as what was ingested. Planned to obtain drug screen but he obviously left before this
happened. He was + for fent/cocaine on 09/22. Security here. AMA form signed with difficulty by patient (writing with pen, reading clock for time).
--- NOTE | 2024-09-27 08:18 | W.DCSUMMARY ---
Addendum entered and electronically signed by Julián Altamirano MD 10/04/24 08:26:
Sepsis secondary to pneumonia
Original Note:
Discharge Summary
Discharge Data
Date of Admission: 09/22/24
Date of Discharge: 09/26/24
-
Pending Results: Yes
Hospital Course
Discharge Diagnosis:
Acute toxic metabolic and sepsis secondary to substance abuse
Opiate withdrawal
Pneumonia
Acute hypoxemic respiratory failure
Questionable seizures activity
hypertension
Acute kidney injury
Metabolic acidosis
Hospital Course:
39-year-old male came to the hospital with toxic metabolic encephalopathy secondary to substance abuse. Patient was monitored in ICU. Patient also developed pneumonia which was likely thought was secondary to aspiration. Patient continued to be
on oxygen which was able to be weaned off over time. Initially he was also on IV antibiotics were later transitioned to oral. UDS was positive for fentanyl and cocaine. Patient then later developed withdrawal and was started on Subutex. While he
was in the hospital he also had questionable seizures activity where he was seen by neurology and was prescribed Keppra. He was instructed to follow-up with neurology outpatient. MRI was ordered and was pending. On 09/26/2024 overnight patient had
an event where he was found sedated with dilated pupils and slowed speech. Upon questioning by nurse patient became belligerent and insisted on leaving AMA. Narcan IV was also given the patient got very upset. It was determined that patient took
some substance while being in the hospital. There was also a plan to repeat drug screen however patient left AMA prior to that. Patient left AMA on 09/26/2024.
Discharge Plan
-
Patient Disposition: Against Medical Advice
Referrals:
UNKNOWN - PT NOT,INTERVIEWE [Family Provider]
Prescriptions:
No Action
clonidine HCl 0.1 mg Tablet
0.1 - 0.2 mg PO Q4HPRN PRN (Reason: withdrawal symptoms)
trazodone 50 mg Tablet
PO
ondansetron HCl [Zofran] 4 mg Tablet
4 mg PO Q6HPRN PRN (Reason: nausea)
clonazepam 0.5 mg Tablet
PO
hydroxyzine HCl 50 mg Tablet
50 mg PO Q6HPRN PRN (Reason: withdrawal symptoms)
buprenorphine-naloxone 8-2 mg Tablet, Sublingual
1 tab SUBLINGUAL TID
Discharge Date and Time
Discharge Date/Time: 09/26/24 22:25
Print Language: LEBANESE
--- NOTE | 2024-09-27 15:04 | CM ---
discharge dispo entered.
--- NOTE | 2024-09-28 11:50 | PN.CDI ---
CDI
- -
CDI:
Physician Documentation Request
Admit Date: 09/22/24 22:45
Dear Doctor Adarsh,
Patient admitted with substance abuse.
09/26 DC Summary: 'Acute toxic metabolic and sepsis secondary to substance abuse'
Laboratory Tests
09/22/24 09/23/24
19:40 03:42
WBC 34.5 H 28.6 H
09/22/24
19:29 09/22/24
19:45 09/22/24
20:09
Pulse 106 107 97
09/22/24
19:33 09/22/24
20:02 09/22/24
20:15
Resp Rate 35 29 30
Please clarify the following:
Sepsis was present on admission
Sepsis was not present on admission
Unable to determine
Use of terms such as suspected, likely, concern for, or probable (associated with a specific diagnosis that is being evaluated, monitored, or treated as if it exists) are acceptable and can be coded in the inpatient setting, when documented at the
time of discharge.
Thank you,
Meme Chung RN, BSN
CDI Specialist
Available via [place] text
Please use your independent medical judgment in providing your response.
== END 2024-09-26 22:25 | disposition left against medical advice (07) | DRG 871 ==
LOC: 3 WEST ACU 22:45
PROVIDERS: Internal Medicine; Nurse Practitioner Primary Care; ADMITTING PHYSICIAN Hospitalist; ATTENDING PHYSICIAN Internal Medicine; CONSULT PHYSICIAN Internal Medicine Critical Care Medicine; CONSULT PHYSICIAN Psychiatry & Neurology Neurology; EMERGENCY PHYSICIAN Student in an Organized Health Care Education/Training Program; OTHER PHYSICIAN Specialist
PROC: 5A0935A Assistance with Respiratory Ventilation, Less than 24 Consecutive Hours, High Flow/Velocity Cannula (ICD-10-PCS; 2024-09-22)
DX: A41.9 Sepsis, unspecified organism (principal); G92.8 Other toxic encephalopathy; J96.01 Acute respiratory failure with hypoxia; J69.0 Pneumonitis due to inhalation of food and vomit; J18.9 Pneumonia, unspecified organism; F11.13 Opioid abuse with withdrawal; N17.9 Acute kidney failure, unspecified; E87.20 Acidosis, unspecified; E87.0 Hyperosmolality and hypernatremia; E87.3 Alkalosis; M62.82 Rhabdomyolysis; E87.1 Hypo-osmolality and hyponatremia; A59.9 Trichomoniasis, unspecified; F17.200 Nicotine dependence, unspecified, uncomplicated; E87.6 Hypokalemia; E86.9 Volume depletion, unspecified; F14.10 Cocaine abuse, uncomplicated; H55.81 Deficient saccadic eye movements; I10 Essential (primary) hypertension; R56.9 Unspecified convulsions; E83.52 Hypercalcemia; D72.829 Elevated white blood cell count, unspecified; T40.5X1A Poisoning by cocaine, accidental (unintentional), initial encounter; Y92.9 Unspecified place or not applicable; Z53.29 Procedure and treatment not carried out because of patient's decision for other reasons
CPT/HCPCS: 36600; 70450; 71045; 72170; 76770; 80048; 80053; 80143; 80179; 80202; 80306; 80307; 81003; 81015; 82010; 82077; 82140; 82248; 82550; 82570; 82805; 82962; 83605; 83735; 83935; 84156; 84300; 84443; 85025; 85027; 85610; 85730; 87040; 87070; 87086; 87205; 87641; 92526; 92610; 93005; 94640; 95708; 95816; 96374; 96375; 97163; 97167; 99291; J3480